=== PATIENT | female | born 1955 | race Caucasian/White ===

== ENCOUNTER 2020-01-24 15:13 | Outpatient (CLI) | payer MEDICARE, SELFPAY ==
--- NOTE | ~2020-01-24 | XR_ITS ---
XR chest 2V DATE: 01/24/2020 15:38 INDICATION: Cough, fever, shortness of breath for 4 days TECHNIQUE: PA and lateral views COMPARISON: 02/26/2010 2 view chest FINDINGS: Normal heart size. No hilar or mediastinal enlargement. No pulmonary infiltrate or consol idation, pulmonary vascular congestion or pleural effusion or pneumothorax. Moderate anterior wedge compression fracture deformity of L1 and to lesser extent T7 and L2. IMPRESSION: No active cardiopulmonary disease Moderate anterior wedge compression fracture deformity of L1 and to lesser extent T7 and L2. Reviewed, dictated and finalized at location B. IMPRESSION: No active cardiopulmonary disease Moderate anterior wedge compression fracture deformity of L1 and to lesser exte nt T7 and L2.
[2020-01-24 15:30] LABS: Basophils Absolute Auto 0.04 K/mm3 (0.00-0.10); Basophils Percent Auto 0.6 % (0.0-1.0); Eosinophils Absolute Auto 0.28 K/mm3 (0.02-0.50); Eosinophils Percent Auto 4.5 % (1.0-6.0); Hematocrit 46.2 % (35.0-42.0); Hemoglobin 14.8 g/dL (11.7-13.8); Immature Granulocyte Absolute 0.03 K/mm3 (0.00-0.00); Immature Granulocyte Percent A 0.5 % (0.0-0.0); Lymphocytes Absolute Auto 1.51 K/mm3 (1.10-4.50); Lymphocytes Percent Auto 24.3 % (18.0-42.0); Mean Corpuscular Hemoglobin 28.4 pg (27.0-31.0); Mean Corpuscular Volume 88.5 fL (78.0-102.0); Monocytes Absolute Auto 0.93 K/mm3 (0.10-0.90); Neutrophils Absolute Auto 3.4 K/mm3 (1.7-7.2); Neutrophils Percent Auto 55.1 % (50.0-70.0); Platelet Count Result 238 K/mm3 (150-420); Red Blood Count 5.22 M/mm3 (4.20-5.40); Red Cell Distribution Width 14.8 % (11.6-14.4); White Blood Count 6.2 K/mm3 (4.8-10.8)
[2020-01-24 15:45] LABS: Alanine Aminotransferase 28 U/L (14-59); Albumin Level 3.1 g/dL (3.4-5.0); Alkaline Phosphatase 77 U/L (46-116); Anion Gap 11.5 mmol/L (7-16); Aspartate Amino Transferase 28 U/L (15-37); Bilirubin,Total 0.2 mg/dL (0.00-1.00); Blood Urea Nitrogen 14 mg/dL (7-18); Calcium 8.5 mg/dL (8.5-10.1); Carbon Dioxide 31 mmol/L (21-32); Chloride 101 mmol/L (98-108); Estimated Glomerular Filt Rate > 60; Glucose 109 mg/dL (70-99); Osmolality Calculated 289 mOsm/kg (285-295); Potassium 4.5 mmol/L (3.5-5.1); Sodium 139 mmol/L (136-145); Total Protein 6.7 g/dL (6.4-8.2)
== END 2020-01-24 15:14 | disposition home or self-care (01) ==
LOC: CHSLAB 15:19
PROVIDERS: PCP Internal Medicine; Visit Provider Internal Medicine
DX: R05 Cough (principal); R50.9 Fever, unspecified
CPT/HCPCS: 36415; 71046; 80053; 85025

== ENCOUNTER 2020-04-15 09:27 | Outpatient (CLI) | payer MEDICARE, SELFPAY ==
--- NOTE | ~2020-04-15 | XR_ITS ---
XR lumbar spine 2-3V 04/15/2020 10:30 Indication: History of spinal fractures. Back pain. Procedure: 3 views lumbar spine Comparison: 05/23/2019 Findings: There is chronic wedge compression fracture of T12. There are mild superior endplate compre ssion fractures of L1 and L5, unchanged. Moderate multilevel facet hypertrophy. There is atherosclero sis of the aorta. Pedicles intact. No new fractures. There is disc narrowing at all lumbar levels exc ept L3-4. Impression: 1: Chronic compression fractures of T12, L1 and L5, unchanged. 2: Moderate-severe lumbar spondylosis. Reviewed, dictated and finalized at location A. Impression: 1: Chronic compression fractures of T12, L1 and L5, unchanged. 2: Moderate-severe lumbar spondylosis.
--- NOTE | ~2020-04-15 | XR_ITS ---
XR thoracic spine 3V 04/15/2020 10:30 Indication: Chronic spine fractures. Back pain. Procedure: 3 views of the thoracic spine Comparison: 06/17/2014 Findings: There is a chronic T12 wedge compression fracture without significant change. Osteopenia. T here is a mild wedge compression deformity of T6 which also appears chronic. No acute fracture. No pa raspinal soft tissue abnormality. Surrounding osseous structures within normal limits. Impression: 1: Chronic wedge compression fractures of T6 and T12 without significant change. Reviewed, dictated and finalized at location A. Impression: 1: Chronic wedge compression fractures of T6 and T12 without significant change .
== END 2020-04-15 09:28 | disposition home or self-care (01) ==
PROVIDERS: PCP Internal Medicine; Visit Provider Internal Medicine
DX: M54.9 Dorsalgia, unspecified (principal)
CPT/HCPCS: 72072; 72100

== ENCOUNTER 2020-04-22 11:02 | Outpatient (CLI) | payer MEDICARE, SELFPAY ==
--- NOTE | ~2020-04-22 | CT_ITS ---
EXAMINATION: CT abdomen pelvis w con DATE: 04/22/2020 11:37 INDICATION: Generalized abdominal pain. TECHNIQUE: Computed tomography (CT) of the abdomen and pelvis was performed with 100 mL Omnipaque 350 intravenous contrast. Automated exposure control and iterative reconstruction technique were employe d. The dose-length product was 633.16 mGy-cm. COMPARISON: Thoracic spine CT 06/20/2014, lumbar spine radiographs 04/15/2020, 05/23/2019, chest two view s 01/24/20 FINDINGS: The visualized portions of the lung bases demonstrate mild atelectasis. No pleural effusion . The heart size is normal. No pericardial effusion. There are cysts in the liver measuring up to 7.6 cm. The gallbladder, spleen, and pancreas are normal. There are masses in the adrenal glands measuri ng soft tissue attenuation measuring up to 2.6 cm on the left without change from 06/20/2014, consiste nt with adenomas. Right kidney is normal. There are cysts in left kidney measuring up to 7.2 cm. Ther e is diverticulosis of the colon without evidence of diverticulitis. There are no dilated loops of gio wel. The appendix is not visualized. There are no pathologically enlarged lymph nodes. There is no fr ee intraperitoneal fluid. There is moderate lumbar spondylosis. There are chronic burst fractures of T12, L1, and L5. There is a burst fracture of L2 with 1/5 loss of height and retropulsion of bone 3 m m into central spinal canal. IMPRESSION: 1. L2 burst fracture, new from 01/24/2020. Reviewed, dictated and finalized at location A.
== END 2020-04-22 11:03 | disposition home or self-care (01) ==
LOC: CHSIMG 11:05
PROVIDERS: PCP Internal Medicine; Visit Provider Internal Medicine
DX: R10.9 Unspecified abdominal pain (principal)
CPT/HCPCS: 74177; Q9965

== ENCOUNTER 2020-05-15 15:02 | Outpatient (CLI) | payer MEDICARE, SELFPAY ==
--- NOTE | ~2020-05-15 | MM_ITS ---
EXAMINATION: MM screening [facility] BI w martínez HISTORY: Screening mammogram TECHNIQUE: Craniocaudal and mediolateral oblique 3-D tomosynthesis images were obtained and synthetic 2-D images were generated. CAD analysis was submitted and interpreted. COMPARISON: 12/28/2018, 06/26/2014 BREAST PARENCHYMAL COMPOSITION: The breasts are heterogeneously dense, which may obscure small masses . FINDINGS: There is no evidence of suspicious mass, calcification, or architectural distortion to sugg est malignancy in either breast. There has been no suspicious interval change. IMPRESSION: 1. No mammographic evidence of malignancy. 2. Recommend routine screening mammography in one year. BI-RADS Category 1: Negative Reviewed, dictated and finalized at location A.
--- NOTE | ~2020-05-15 | DEXA_ITS ---
BMD(1) Young-Adult(2) Age-Matched(3) Region (g/cm2) T-score Z-score WHO Classification L1 1.244 0.8 1.9 Normal L2 1.346 1.1 2.2 Normal L3 1.407 1.5 2.6 Normal L4 1.294 0.6 1.6 Normal L1-L4 1.331 1.1 2.1 Normal Trend: L1-L4 Change vs Change vs Measured Age BMD(1) Baseline Previous Date (years) (g/cm2) (%) (%) 05/15/2020 65.0 1.331 10.0* 10.0* 06/26/2014 59.1 1.210 baseline - * - Indicates significant change based on 95% confidence interval. 1 - Statistically 68% of repeat scans fall within 1SD (+- 0.010 g/cm2 for AP Spine L1-L4) 2 - [place] (Combined NHANES (ages 20-30) / HomeSav (ages 20-40)) AP Spine Reference Population (v112) 3 - Matched for Age, Weight (females 25-100 kg), Ethnic 11 - World Health Organization - Definition of Osteoporosis and Osteopenia for Women: Normal = T-score at or above -1.0 SD; Osteopenia = T-score between -1.0 and -2.5 SD; Osteoporosis = T-score at or below -2.5 SD; (WHO definitions only apply when a young healthy Women reference database is used to determine T-scores.) Printed: 05/15/2020 3:42:56 PM (13.60)76:3.00:50.00:12.0 0.00:9.84 0.60x1.05 25.1:%Fat=29.1% 0.00:0.00 0.00:0.00 Filename: [id number] Scan Mode: Standard;[employer]can 37.0 Smile [id number] BMD(1) Young-Adult(2,7) Age-Matched(3) Region (g/cm2) T-score Z-score WHO Classification Neck Left 0.765 -2.0 -0.8 Osteopenia Right 0.809 -1.6 -0.5 Osteopenia Mean 0.787 -1.8 -0.7 Osteopenia Difference 0.044 0.3 0.3 - Total Left 0.832 -1.4 -0.5 Osteopenia Right 0.862 -1.2 -0.3 Osteopenia Mean 0.847 -1.3 -0.4 Osteopenia Difference 0.030 0.2 0.2 - Hip [place] Length Comparison (mm) (Right = 94.5 mm) (Mean = 107.9 mm) (Left = 107.0 mm) Trend: Total Mean Change vs Change vs Measured Age BMD(1) Baseline Previous Date (years) (g/cm2) (%) (%) 05/15/2020 65.0 0.847 -2.3 -2.3 06/26/2014 59.1 0.867 baseline - 1 - Statistically 68% of repeat scans fall within 1SD (+- 0.010 g/cm2 for DualFemur Total) 2 - [place] (Combined NHANES (ages 20-30) / HomeSav (ages 20-40)) Femur Reference Population (v112) 3 - Matched for Age, Weight (females 25-100 kg), Ethnic 7 - DualFemur Total T-score difference is 0.2. Asymmetry is None. 11 - World Health Organization - Definition of Osteoporosis and Osteopenia for Women: Normal = T-score at or above -1.0 SD; Osteopenia = T-score between -1.0 and -2.5 SD; Osteoporosis = T-score at or below -2.5 SD; (WHO definitions only apply when a young healthy Women reference database is used to determine T-scores.) Printed: 05/15/2020 3:42:57 PM (13.60); Filename: [id number]; Right Femur; 20.8:%Fat=36.5%; Neck Angle (deg)= 64; Scan Mode: Standard 37.0 uGy; Left Femur; 20.7:%Fat=41.0%; Neck Angle (deg)= 70; Scan Mode: Standard 37.0 uGy Candid io [id number] Dear Luis Levi, Your patient Madeline Villa completed a BMD test on 05/15/2020 using the Candid io DXA System (analysis version: 13.60) manufactured by [employer]. The following summarizes the results of our evaluation. PATIENT BIOGRAPHICAL: Name: Madeline Villa Bi
== END 2020-05-15 15:03 | disposition home or self-care (01) ==
PROVIDERS: PCP Internal Medicine; Visit Provider Internal Medicine
DX: Z12.31 Encounter for screening mammogram for malignant neoplasm of breast (principal); M81.0 Age-related osteoporosis without current pathological fracture
CPT/HCPCS: 77063; 77067; 77080

== ENCOUNTER 2021-06-23 11:35 | Outpatient (CLI) | payer MEDICARE, SELFPAY ==
[2021-06-23 11:48] LABS: Add Urine Microscopic? YES; Appearance Urine Clear (Clear); Bilirubin Urine Negative (Negative); Blood Urine 1+ (Negative); Color Urine Light Yellow (Yellow); Glucose Urine UA Negative (Negative); Ketones Urine Negative (Negative); Leukocyte Esterase Ur Negative (Negative); Nitrate Urine Negative (Negative); Protein Urine Negative (Negative); Specific Grav Ur <= 1.005 (1.010-1.020); Urobilinogen Urine 0.2 mg/dL (0.2-1.0)
[2021-06-23 11:50] LABS: Basophils Absolute Auto 0.09 K/mm3 (0.00-0.10); Basophils Percent Auto 0.8 % (0.0-1.0); Eosinophils Absolute Auto 0.18 K/mm3 (0.02-0.50); Eosinophils Percent Auto 1.6 % (1.0-6.0); Hematocrit 52.5 % (35.0-42.0); Hemoglobin 17.2 g/dL (11.7-13.8); Immature Granulocyte Absolute 0.11 K/mm3 (0.00-0.00); Lymphocytes Absolute Auto 2.01 K/mm3 (1.10-4.50); Lymphocytes Percent Auto 17.7 % (18.0-42.0); Mean Corpuscular HGB Conc 32.8 g/dL (32.0-36.0); Mean Corpuscular Hemoglobin 30.3 pg (27.0-31.0); Mean Corpuscular Volume 92.4 fL (78.0-102.0); Mean Platelet Volume 8.8 fl (9.2-11.8); Monocytes Percent Auto 7.9 % (2.0-11.0); Neutrophils Absolute Auto 8.1 K/mm3 (1.7-7.2); Platelet Count Result 274 K/mm3 (150-420); Red Blood Count 5.68 M/mm3 (4.20-5.40); Red Cell Distribution Width 14.5 % (11.6-14.4); White Blood Count 11.4 K/mm3 (4.8-10.8)
[2021-06-23 11:56] LABS: Bacteria Urine None seen /hpf; RBC Urine 0-2 /hpf (0-2); Squamous Epithelial Cell Urine Rare /hpf (Few); WBC Urine 0-3 /hpf (0-3)
[2021-06-23 12:17] LABS: Alanine Aminotransferase 29 U/L (14-59); Albumin Level 3.8 g/dL (3.4-5.0); Alkaline Phosphatase 83 U/L (46-116); Anion Gap 10 mmol/L (8-16); Aspartate Amino Transferase 15 U/L (15-37); Bilirubin,Total 0.8 mg/dL (0.00-1.00); Blood Urea Nitrogen 14 mg/dL (7-18); Carbon Dioxide 28 mmol/L (21-32); Chloride 102 mmol/L (98-108); Cholesterol 174 mg/dL (0-200); Estimated Glomerular Filt Rate 55; Glucose 100 mg/dL (70-99); HDL Direct 67 mg/dL (40-60); LDL Cholesterol Calculated 94 mg/dL (<130); Osmolality Calculated 290 mOsm/kg (285-295); Potassium 4.6 mmol/L (3.5-5.1); Sodium 140 mmol/L (136-145); Thyroid Stimulating Hormone 0.06 uIU/mL (0.36-3.74); Total Protein 7.7 g/dL (6.4-8.2); Triglycerides 67 mg/dL (0-150)
== END 2021-06-23 11:36 | disposition home or self-care (01) ==
LOC: CHSLAB 11:39
PROVIDERS: PCP Internal Medicine; Visit Provider Internal Medicine
DX: E03.9 Hypothyroidism, unspecified (principal); I10 Essential (primary) hypertension
CPT/HCPCS: 36415; 80053; 80061; 81001; 84443; 85025

== ENCOUNTER 2021-07-03 07:29 | Outpatient (CLI) | payer MEDICARE, SELFPAY ==
--- NOTE | ~2021-07-03 | MM_ITS ---
EXAMINATION: MM screening [facility] BI w martínez HISTORY: Screening mammogram TECHNIQUE: Craniocaudal and mediolateral oblique 3-D tomosynthesis images were obtained and synthetic 2-D images were generated. CAD analysis was submitted and interpreted. COMPARISON: 05/15/2020, 12/28/2018, 06/26/2014 BREAST PARENCHYMAL COMPOSITION: There are scattered areas of fibroglandular density. FINDINGS: There is no evidence of suspicious mass, calcification, or architectural distortion to sugg est malignancy in either breast. There has been no suspicious interval change. IMPRESSION: 1. No mammographic evidence of malignancy. 2. Recommend routine screening mammography in one year. BI-RADS Category 1: Negative Reviewed, dictated and finalized at location A.
== END 2021-07-03 07:30 | disposition home or self-care (01) ==
LOC: CHSIMG 07:30
PROVIDERS: PCP Internal Medicine; Visit Provider Internal Medicine
DX: Z12.31 Encounter for screening mammogram for malignant neoplasm of breast (principal)
CPT/HCPCS: 77063; 77067

== ENCOUNTER 2022-01-14 10:21 | Outpatient (CLI) | payer MEDICARE, SELFPAY ==
--- NOTE | ~2022-01-14 | XR_ITS ---
EXAMINATION: XR shoulder LT min 2V DATE: 01/14/2022 10:53 INDICATION: Left shoulder pain. TECHNIQUE: 4 views of left shoulder were obtained. COMPARISON: Left shoulder radiographs 01/13/2009 FINDINGS: Bone alignment is normal. No fracture. There is mild osteoarthritis of acromioclavicular guanakito int and glenohumeral joint. There are surgical clips in the neck. IMPRESSION: 1. Mild polyarticular osteoarthritis. Reviewed, dictated and finalized at location A. CIAN
== END 2022-01-14 10:22 | disposition home or self-care (01) ==
LOC: CHSIMG 10:23
PROVIDERS: PCP Internal Medicine; Visit Provider Internal Medicine
DX: M25.512 Pain in left shoulder (principal)
CPT/HCPCS: 73030

== ENCOUNTER 2022-06-21 10:17 | Outpatient (CLI) | payer MEDICARE, SELFPAY ==
[2022-06-21 10:31] LABS: Basophils Absolute Auto 0.08 K/mm3 (0.00-0.10); Basophils Percent Auto 0.7 % (0.0-1.0); Eosinophils Absolute Auto 0.13 K/mm3 (0.02-0.50); Eosinophils Percent Auto 1.2 % (1.0-6.0); Hematocrit 49.8 % (35.0-42.0); Immature Granulocyte Absolute 0.07 K/mm3 (0.00-0.00); Immature Granulocyte Percent A 0.7 % (0.0-0.0); Lymphocytes Absolute Auto 1.75 K/mm3 (1.10-4.50); Lymphocytes Percent Auto 16.3 % (18.0-42.0); Mean Corpuscular HGB Conc 32.1 g/dL (32.0-36.0); Mean Corpuscular Hemoglobin 30.6 pg (27.0-31.0); Mean Corpuscular Volume 95.2 fL (78.0-102.0); Mean Platelet Volume 9.1 fl (9.2-11.8); Monocytes Absolute Auto 0.83 K/mm3 (0.10-0.90); Monocytes Percent Auto 7.7 % (2.0-11.0); Neutrophils Absolute Auto 7.9 K/mm3 (1.7-7.2); Neutrophils Percent Auto 73.4 % (50.0-70.0); Platelet Count Result 279 K/mm3 (150-420); Red Blood Count 5.23 M/mm3 (4.20-5.40); Red Cell Distribution Width 13.7 % (11.6-14.4); White Blood Count 10.7 K/mm3 (4.8-10.8)
[2022-06-21 10:32] LABS: Appearance Urine Clear (Clear); Bilirubin Urine Negative (Negative); Color Urine Light Yellow (Yellow); Glucose Urine UA Negative (Negative); Ketones Urine Negative (Negative); Leukocyte Esterase Ur Negative LEU/UL (Negative); Nitrate Urine Negative (Negative); Protein Urine Negative (Negative); Specific Grav Ur <= 1.005 (1.010-1.020); Urobilinogen Urine 0.2 mg/dL (0.2-1.0)
[2022-06-21 10:40] LABS: Add Urine Microscopic? YES; Bacteria Urine Trace /hpf; Blood Urine Trace-Intact (Negative); RBC Urine 0-2 /hpf (0-2); Squamous Epithelial Cell Urine Few /hpf (Few); WBC Urine None seen /hpf (0-3)
[2022-06-21 11:01] LABS: Alanine Aminotransferase 22 U/L (14-59); Albumin Level 3.6 g/dL (3.4-5.0); Alkaline Phosphatase 74 U/L (46-116); Anion Gap 5 mmol/L (8-16); Aspartate Amino Transferase 16 U/L (15-37); Bilirubin,Total 0.8 mg/dL (0.00-1.00); Blood Urea Nitrogen 14 mg/dL (7-18); Calcium 8.9 mg/dL (8.5-10.1); Carbon Dioxide 30 mmol/L (21-32); Chloride 101 mmol/L (98-108); Cholesterol 159 mg/dL (0-200); Estimated Glomerular Filt Rate > 60; Glucose 115 mg/dL (70-99); HDL Direct 66 mg/dL (40-60); LDL Cholesterol Calculated 76 mg/dL (<130); Osmolality Calculated 283 mOsm/kg (285-295); Potassium 4.7 mmol/L (3.5-5.1); Sodium 136 mmol/L (136-145); Thyroid Stimulating Hormone 0.03 uIU/mL (0.36-3.74); Total Protein 7.2 g/dL (6.4-8.2); Triglycerides 83 mg/dL (0-150)
[2022-06-21 13:38] LABS: Hemoglobin A1C 5.5 % (<5.7)
== END 2022-06-21 10:18 | disposition home or self-care (01) ==
LOC: CHSLAB 10:20
PROVIDERS: PCP Internal Medicine; Visit Provider Internal Medicine
DX: E78.5 Hyperlipidemia, unspecified (principal); E03.9 Hypothyroidism, unspecified; I10 Essential (primary) hypertension; Z00.00 Encounter for general adult medical examination without abnormal findings; R73.9 Hyperglycemia, unspecified
CPT/HCPCS: 36415; 80053; 80061; 81001; 83036; 84443; 85025

== ENCOUNTER 2022-09-17 13:45 | Outpatient (CLI) | payer MEDICARE, SELFPAY ==
[2022-09-17 14:45] LABS: Thyroid Stimulating Hormone 0.64 uIU/mL (0.36-3.74)
== END 2022-09-17 13:46 | disposition home or self-care (01) ==
LOC: CHSLAB 13:47
PROVIDERS: PCP Internal Medicine; Visit Provider Internal Medicine
DX: E03.9 Hypothyroidism, unspecified (principal)
CPT/HCPCS: 36415; 84443

== ENCOUNTER 2023-03-10 09:45 | Outpatient (CLI) | payer MEDICARE, SELFPAY ==
--- NOTE | ~2023-03-10 | XR_ITS ---
Lumbosacral Spine: AP and lateral views Clinical History: Pain COMPARISON: 04/15/2020 Findings: The normal lordotic curve is maintained. Mild compression fractures of L2 and L3, at the guevara perior plate regions, are present, new from prior exam. There is stable moderate compression fracture of T12, and mild compression fracture of L1. There is diffuse facet arthropathy in the lumbar spine, worst at the lower lumbar spine. The intervertebral disc spaces are preserved. The sacroiliac joint s are normally outlined. Atherosclerotic calcifications of the aorta are noted. Impression: New compression fractures of L2 and L3 since prior exam. L3 fracture may be acute. Consider MR to owen luate for acute marrow edema as indicated. Stable chronic compression fractures of T12 and L1. Stable degenerative spondylosis. Reviewed, dictated and finalized at [facility]. Impression: New compression fractures of L2 and L3 since prior exam. L3 fracture may be acu te. Consider MR to evaluate for acute marrow edema as indicated. Stable chronic compression fractures of T12 and L1. Stable degenerative spondylosis.
--- NOTE | ~2023-03-10 | XR_ITS ---
AP and lateral views of the right hip Clinical history: Pain Findings: No acute fracture or dislocation is seen. Osseous alignment is anatomic. The right hip join t is preserved. Soft tissues are unremarkable. Impression: No significant abnormality is seen. Reviewed, dictated and finalized at location . Impression: No significant abnormality is seen.
[2023-03-10 10:00] LABS: Basophils Absolute Auto 0.09 K/mm3 (0.00-0.10); Basophils Percent Auto 0.7 % (0.0-1.0); Eosinophils Absolute Auto 0.16 K/mm3 (0.02-0.50); Eosinophils Percent Auto 1.3 % (1.0-6.0); Hemoglobin 16.3 g/dL (11.7-13.8); Immature Granulocyte Absolute 0.14 K/mm3 (0.00-0.00); Immature Granulocyte Percent A 1.1 % (0.0-0.0); Lymphocytes Absolute Auto 2.39 K/mm3 (1.10-4.50); Lymphocytes Percent Auto 18.7 % (18.0-42.0); Mean Corpuscular HGB Conc 32.6 g/dL (32.0-36.0); Mean Corpuscular Hemoglobin 31.1 pg (27.0-31.0); Mean Corpuscular Volume 95.4 fL (78.0-102.0); Mean Platelet Volume 8.6 fl (9.2-11.8); Neutrophils Absolute Auto 9.1 K/mm3 (1.7-7.2); Neutrophils Percent Auto 71.2 % (50.0-70.0); Platelet Count Result 288 K/mm3 (150-420); Red Blood Count 5.24 M/mm3 (4.20-5.40); Red Cell Distribution Width 14.1 % (11.6-14.4); White Blood Count 12.8 K/mm3 (4.8-10.8)
[2023-03-10 10:41] LABS: Alanine Aminotransferase 9 U/L (14-59); Albumin Level 3.7 g/dL (3.4-5.0); Alkaline Phosphatase 75 U/L (46-116); Anion Gap 8 mmol/L (8-16); Aspartate Amino Transferase 12 U/L (15-37); Blood Urea Nitrogen 13 mg/dL (7-18); CRP < 0.5 mg/dL (0.0-0.9); Calcium 9.3 mg/dL (8.5-10.1); Carbon Dioxide 31 mmol/L (21-32); Chloride 100 mmol/L (98-108); Estimated Glomerular Filt Rate 54; Glucose 103 mg/dL (70-99); Osmolality Calculated 288 mOsm/kg (285-295); Potassium 4.8 mmol/L (3.5-5.1); Sodium 139 mmol/L (136-145); Thyroid Stimulating Hormone 0.39 uIU/mL (0.36-3.74); Total Protein 6.9 g/dL (6.4-8.2)
== END 2023-03-10 09:46 | disposition home or self-care (01) ==
LOC: CHSLAB 09:46
PROVIDERS: PCP Internal Medicine; Visit Provider Internal Medicine
DX: M54.17 Radiculopathy, lumbosacral region (principal); I10 Essential (primary) hypertension; E03.9 Hypothyroidism, unspecified; M48.56XA Collapsed vertebra, not elsewhere classified, lumbar region, initial encounter for fracture; M48.54XA Collapsed vertebra, not elsewhere classified, thoracic region, initial encounter for fracture; M43.07 Spondylolysis, lumbosacral region
CPT/HCPCS: 36415; 72100; 73502; 80053; 84443; 85025; 86140

== ENCOUNTER 2023-03-17 08:40 | Outpatient (CLI) | payer MEDICARE, SELFPAY ==
--- NOTE | ~2023-03-17 | MR_ITS ---
MRI of the lumbar spine Clinical History: Compression fracture Technique: Axial T2-weighted images, and sagittal T1-weighted, T2-weighted, and T2 fat-sat images wer e acquired. Findings: There is chronic compression deformity of T12, L1, and L5. There is probable acute minimal compression deformity of the superior plate region of L2. There is minimal grade 1 retrolisthesis of L2 over L3. At L1-L2, there is mild diffuse disc bulge and mild facet arthropathy. No spinal canal stenosis. Ther e is mild right neural foraminal narrowing. Left neural foramen preserved. At L2-L3, there is disc bulge and mild to moderate facet arthropathy. No central canal stenosis. Ther e is advanced left neural foraminal narrowing and minimal right neural foraminal narrowing. L3-L4, disc bulge and facet arthropathy result in mild central canal stenosis. Bilateral neural yanira antionette are preserved. At L4-L5, there is mild disc bulge and moderate facet arthropathy. No central canal stenosis. Bilater al neural foramina are preserved. At L5-S1, there is no disc bulge or herniation. There is moderate to advanced facet arthropathy. No s jelly canal stenosis or neural foraminal narrowing. Paravertebral soft tissues are unremarkable. Hepatic and renal cysts are partially imaged. Impression: Probable minimal acute compression fracture of the superior endplate region of L2. Chronic compression fractures of T12, L1, and L5. Minimal grade 1 retrolisthesis of L2 over L3. Mild degenerative spondylosis, as above. Findings are probably worst at L2-L3. Reviewed, dictated and finalized at [facility]. Impression: Probable minimal acute compression fracture of the superior endplate region of L2. Chronic compression fractures of T12, L1, and L5. Minimal grade 1 retrolisthesis of L2 over L3. Mild degenerative spondylosis, as above. Findings are probably worst at L2-L3.
== END 2023-03-17 08:41 | disposition home or self-care (01) ==
LOC: CHSIMG 08:41
PROVIDERS: PCP Internal Medicine; Visit Provider Internal Medicine
DX: M48.56XA Collapsed vertebra, not elsewhere classified, lumbar region, initial encounter for fracture (principal); M43.06 Spondylolysis, lumbar region
CPT/HCPCS: 72148

== ENCOUNTER 2023-07-04 08:07 | Outpatient (CLI) | payer MEDICARE, SELFPAY ==
[2023-07-04 09:11] LABS: Free T3 1.88 pg/mL (2.18-3.98); Free T4 Free Thyroxine 1.21 ng/dL (0.76-1.46); Thyroid Stimulating Hormone 0.87 uIU/mL (0.36-3.74)
[2023-07-08 18:32] LABS: Parathyroid Intact 26 pg/mL (14-64)
== END 2023-07-04 08:08 | disposition home or self-care (01) ==
LOC: CHSLAB 08:10
PROVIDERS: PCP Internal Medicine; Visit Provider Internal Medicine
DX: E03.9 Hypothyroidism, unspecified (principal)
CPT/HCPCS: 36415; 83970; 84439; 84443; 84481

== ENCOUNTER 2023-12-30 12:33 | Outpatient (CLI) | payer MEDICARE, SELFPAY ==
[2023-12-30 12:49] LABS: Basophils Absolute Auto 0.11 K/mm3 (0.00-0.10); Eosinophils Absolute Auto 0.15 K/mm3 (0.02-0.50); Eosinophils Percent Auto 1.3 % (1.0-6.0); Hematocrit 51.6 % (35.0-42.0); Hemoglobin 16.9 g/dL (11.7-13.8); Immature Granulocyte Absolute 0.14 K/mm3 (0.00-0.00); Immature Granulocyte Percent A 1.2 % (0.0-0.0); Lymphocytes Absolute Auto 2.43 K/mm3 (1.10-4.50); Lymphocytes Percent Auto 21.1 % (18.0-42.0); Mean Corpuscular HGB Conc 32.8 g/dL (32.0-36.0); Mean Corpuscular Volume 91.7 fL (78.0-102.0); Mean Platelet Volume 8.8 fl (9.2-11.8); Monocytes Absolute Auto 1.01 K/mm3 (0.10-0.90); Monocytes Percent Auto 8.8 % (2.0-11.0); Neutrophils Absolute Auto 7.7 K/mm3 (1.7-7.2); Neutrophils Percent Auto 66.6 % (50.0-70.0); Platelet Count Result 283 K/mm3 (150-420); Red Blood Count 5.63 M/mm3 (4.20-5.40); Red Cell Distribution Width 14.1 % (11.6-14.4); White Blood Count 11.5 K/mm3 (4.8-10.8)
[2023-12-30 12:59] LABS: Appearance Urine Clear (Clear); Bilirubin Urine Negative (Negative); Blood Urine 2+ (Negative); Color Urine Light Yellow (Yellow); Glucose Urine UA Negative (Negative); Ketones Urine Trace (Negative); Leukocyte Esterase Ur Negative (Negative); Nitrate Urine Negative (Negative); Protein Urine Negative (Negative); Urobilinogen Urine 0.2 mg/dL (0.2-1.0); pH Urine 5.5 (5.0-8.0)
[2023-12-30 13:08] LABS: Add Urine Microscopic? YES; Bacteria Urine 1+ /hpf; Squamous Epithelial Cell Urine Few /hpf (Few); WBC Urine None seen /hpf (0-3)
[2023-12-30 15:29] LABS: Alanine Aminotransferase 28 U/L (14-59); Albumin Level 3.7 g/dL (3.4-5.0); Alkaline Phosphatase 70 U/L (46-116); Anion Gap 9 mmol/L (8-16); Aspartate Amino Transferase 13 U/L (15-37); Bilirubin,Total 0.6 mg/dL (0.00-1.00); Blood Urea Nitrogen 14 mg/dL (7-18); Calcium 9.3 mg/dL (8.5-10.1); Carbon Dioxide 29 mmol/L (21-32); Chloride 102 mmol/L (98-108); Cholesterol 195 mg/dL (0-200); Estimated Glomerular Filt Rate > 60; Glucose 75 mg/dL (70-99); HDL Direct 69 mg/dL (40-60); LDL Cholesterol Calculated 107 mg/dL (<130); Osmolality Calculated 289 mOsm/kg (285-295); Potassium 5.3 mmol/L (3.5-5.1); Sodium 140 mmol/L (136-145); Thyroid Stimulating Hormone 0.19 uIU/mL (0.36-3.74); Total Protein 6.9 g/dL (6.4-8.2); Triglycerides 93 mg/dL (0-150)
== END 2023-12-30 12:34 | disposition home or self-care (01) ==
LOC: CHSLAB 12:35
PROVIDERS: PCP Internal Medicine; Visit Provider Internal Medicine
DX: I10 Essential (primary) hypertension (principal)
CPT/HCPCS: 36415; 80053; 80061; 81001; 84443; 85025

== ENCOUNTER 2025-03-25 10:21 | Outpatient (CLI) | payer MEDICARE, SELFPAY ==
[2025-03-25 10:36] LABS: Hematocrit 53.7 % (35.0-42.0); Hemoglobin 17.3 g/dL (11.7-13.8); Mean Corpuscular HGB Conc 32.2 g/dL (32-36); Mean Corpuscular Hemoglobin 29.5 pg (27.0-31.0); Mean Corpuscular Volume 91.5 fL (78.0-102.0); Mean Platelet Volume 8.8 fl (9.2-11.8); Platelet Count Result 291 K/mm3 (150-420); Red Blood Count 5.87 M/mm3 (4.20-5.40); White Blood Count 14.3 K/mm3 (4.8-10.8)
[2025-03-25 10:37] LABS: Add Urine Microscopic? NO; Appearance Urine Clear (Clear); Bilirubin Urine Negative (Negative); Blood Urine Trace-intact (Negative); Color Urine Light Yellow (Yellow); Glucose Urine UA Negative (Negative); Ketones Urine Negative (Negative); Leukocyte Esterase Ur Negative (Negative); Nitrate Urine Negative (Negative); Protein Urine Negative (Negative); Specific Grav Ur <= 1.005 (1.010-1.020); Urobilinogen Urine 0.2 mg/dL (0.2-1.0)
--- OUTSIDE RECORDS SUMMARY | 2025-03-25 10:59 | XMS_ITS ---
Author Organization [facility] [place] [facility] Address [address] [place] [address] Care Team Providers Care Advertising Associate Name Role Phone Luis Levi MD Primary Care Provider [phone] Active Problems Problem Noted Date Diagnosed Date Sesamoiditis of right hand 10/10/2024 Trigger finger, right index finger 10/10/2024 Trigger middle finger of right hand 09/24/2024 Post-surgical hypothyroidism 11/14/2023 Assessment & Plan (11/14/2023 7:04 PM FURNITURE LUMBER PRODUCTION WORKER): -repeat TSH, FT4 today -continue current dose of levothyroxine, will adjust dose based on her labs -goal TSH should be within normal range since she has been in remission for >10 years. Also with her hx of osteoporosis and vertebral fractures, would not recommend suppressed TSH History of vertebral compression fracture 2022 Recurrent maxillary sinusitis 10/28/2022 Assessment & Plan (10/28/2022 8:40 AM FURNITURE LUMBER PRODUCTION WORKER): CT Sinus - have face covering completely of face for imaging Centralized Scheduling: Nasal saline spray (Simply saline, Little Remedies, Cherry Log, Jemison) 2 second sprays or 2 squeezes into each nostril while looking down over the sink, do not need to sniff in. 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 No surgical treatment indicated at this time. Assessment & Plan (12/25/2018 8:05 AM FURNITURE LUMBER PRODUCTION WORKER): Patient demonstrates signs and symptoms consistent with chronic sinusitis. Patient has a known history of allergic rhinitis. Patient is also habitual tobacco user. There has been no recent diagnostic imaging. Today's examination did reveal a deviation of the septum to the right with turbinate hypertrophy. Patient would benefit from a CT scan of the paranasal sinuses to evaluate the extent of the disease. Patient will follow back up afterwards to discuss the results and any further treatment recommendations. Allergic rhinitis 12/25/2018 Assessment & Plan (04/03/2020 2:18 PM CDT): Nasal saline spray (Simply saline, Little Remedies, Cherry Log, Jemison) 2 second sprays or 2 squeezes into each nostril while looking down over the sink, do not need to sniff in. Followed by Astelin 2 sprays into each nostril while looking down over the sink, do not sniff in or blow nose after use for at least 30 minutes twice daily Start Cetirizine 10 mg (Zyrtec) daily Blood allergy testing Assessment & Plan (01/08/2019 12:42 PM FURNITURE LUMBER PRODUCTION WORKER): Patient will be placed on fluticasone nasal spray two sprays in each nostril q.day and Astelin nasal spray one spray in each nostril q.day. Patient instructed to maintain compliance with her treatment regimen. She has also consist a on the Singulair as prescribed daily. Patient would benefit from daily saline nasal irrigation of promote mucociliary clearance. Patient was made aware that her habitual cigarette smoking has a large contribution to her chronic sinonasal symptoms. Anything she can do to reduce her discontinue cigarette smoking will directly benefit. Assessment & Plan (12/25/2018 8:13 AM FURNITURE LUMBER PRODUCTION WORKER): Patient reports that she has been tested positive for allergies in the past. She did receive immunotherapy. Patient is also habitual cigarette smoker. She has been taking Singulair and Claritin p.r.n.. Patient was given a saline nasal irrigation system to be performed daily to help promote mucociliary clearance. Patient is advised to continue with the Singulair and Claritin as prescribed until workup is complete. Tobacco abuse disorder 12/25/2018 Assessment & Plan (12/25/2018 8:08 AM FURNITURE LUMBER PRODUCTION WORKER): Patient was advised that habitual tobacco use with smoking cigarettes directly contributes to her chronic sinonasal symptoms. By stopping smoking this could improve her nasal symptoms. Malignant neoplasm of thyroid gland 03/23/2014 Overview (02/10/2017): MALIGN NEOPL THYROID Assessment & Plan (11/14/2023 7:10 PM FURNITURE LUMBER PRODUCTION WORKER): Diagnosed in 2006 s/p total thyroidectomy and ORELLANA x2 Will plan for biochemical surveillance with tumor markers and TSH. Goal TSH should be within normal range. Will order a neck SUG but if tumor markers are negative, further imaging is not warranted Non-toxic multinodular goiter 03/23/2014 Overview (02/10/2017): NONTOX MULTINODUL GOITER Benign neoplasm of adrenal gland 03/23/2014 Overview (02/10/2017): BENIGN NEOPLASM ADRENAL Papillary carcinoma of thyroid 03/19/2009 Assessment & Plan (11/14/2023 7:19 PM FURNITURE LUMBER PRODUCTION WORKER): Diagnosed in 2006 s/p total thyroidectomy and ORELLANA x2 Will plan for biochemical surveillance with tumor markers and TSH. Goal TSH should be within normal range. Ordered a neck USG since there is no imaging on file but if tumor markers are negative, less concern for recurrence. Current Treatment and Therapy Plans No current plan information found. Other Current Plans romosozumab (EVENITY) THERAPY PLAN* Plan Start Date:01/30/2021 Plan Provider:Lorenzo Robison MD Linked Problems Age-related osteoporosis wit hout current pathological fracture Treatment Medications No medications scheduled. Zoledronic Acid (Reclast) Infusion* Plan Start Date:05/31/2023 Plan Provider:Lorenzo Robison MD Linked Problems Age-related osteoporosis wit hout current pathological fracture Treatment Medications No medications scheduled. Past Treatment and Therapy Plans No past plan information found. Lifetime Dose Tracking * Chemical Lifetime Dose Automatic Entry Manual Entr y Fluoro Time 0.3 minutes 0.3 minutes 0 minutes Air kerma at the reference point (Ka,r) 3.86 mGy 3 .86 mGy 0 mGy
--- OUTSIDE RECORDS SUMMARY | 2025-03-25 10:59 | XMS_ITS | Encounter Summary ---
Author Organization [facility] Address [address] [place] [address] Phone Care Team Providers Care Psychiatry Resident Name Role Phone Luis Levi MD Primary Care Provider [phone] Encounter Details Date Type Department Care Team (Late st Contact Info) Description 03/10/2023 Orders Only [facility] Scanning, Provider Social History Tobacco Use Types Packs/Day Years Used Date Smoking Tobacco: Every Day Cigarettes 0.5 54.4 Started: 1972 Smokeless Tobacco: Never Alcohol Use Standard Drinks/Week Comments Yes 0 (1 standard drink = 0.6 oz pur e alcohol) AUDIT-C Answer Date Recorded Q1: How often do you have a drink containing alc ohol? 2-3 times a week 10/27/2021 Q2: How many drinks containi ng alcohol do you have on a typical day when you are drinking? 1 or 2 10/27/2021 Q3: How often do you have si x or more drinks on one occasion? Weekly 10/27/2021 Comments No Sex and Gender Information Value Date Recorded Sex Assigned at Not on file Legal Sex Female 7:54 PM BUSINESS DEVELOPMENT COORDINATOR Gender Identity Not on file Sexual Orientation Straight 09/10/2021 9: 59 AM CDT documented as of this encounter Plan of Treatment Not on file documented as of this encounter Procedures Procedure Name Priority Date/Time Associated Diagnosis Comments SCAN - LABS 03/10/2023 documented in this encounter Results * SCAN - LABS (03/10/2023) us Provider Scanning Final Result documented in this encounter Visit Diagnoses Not on filedocumented in this encounter Care Teams Psychiatry Resident Relationship Specialty Start Date End Date Luis Levi MD PCP - General 09/04/15 documented as of this encounter
--- OUTSIDE RECORDS SUMMARY | 2025-03-25 10:59 | XMS_ITS | Encounter Summary ---
Author Organization [facility] Address [address] [place] [address] Care Team Providers Care Private Wealth Advisor Name Role Phone Luis Levi MD Primary Care Provider [phone] Encounter Details Date Type Department Care Team (Late st Contact Info) Description 10/04/2023 Telephone [facility] [address] [address], [address] [place] [address] Gildardo Sosa MD [address] [address] Social History Tobacco Use Types Packs/Day Years Used Date Smoking Tobacco: Every Day Cigarettes 0.5 54.4 Started: 1972 Smokeless Tobacco: Never Comments:Smoking cessation g iven Alcohol Use Standard Drinks/Week Comments Yes 0 (1 standard drink = 0.6 oz pur e alcohol) AUDIT-C Answer Date Recorded Q1: How often do you have a drink containing alc ohol? 2-4 times a month 09/07/2023 Q2: How many drinks containi ng alcohol do you have on a typical day when you are drinking? 1 or 2 09/07/2023 Q3: How often do you have si x or more drinks on one occasion? Never 09/07/2023 Hunger Vital Sign Answer Date Recorded Within the past 12 months, y ou worried that your food would run out before you got the money to buy more. Never true 06/02/20 23 Within the past 12 months, t he food you bought just didn't last and you didn't have money to get more. Never true 06/02/2023 Personal Safety Answer Date Recorded Have you ever been in or are you currently in a harmful physical or emotional relationship or is someone making you feel afraid or unsafe? Denies 06/02/2023 Comments No Sex and Gender Information Value Date Recorded Sex Assigned at Not on file Legal Sex Female 7:54 PM ZYGLO TECHNICIAN Gender Identity Not on file Sexual Orientation Straight 09/10/2021 9: 59 AM CDT documented as of this encounter Plan of Treatment Not on file documented as of this encounter Goals Goal Patient Goal Type Associated Problems Recent Progress Patient-Stated? Author CCM Chronic Pain Care Plan Chronic Care Management Worsening( 12:23 PM CDT) No Stefanie Kaur RN Note: Problem: Chronic Pain Goals: 1. Minimize further functional decline 2. Maximize quality of life 3. Control pain Strategies: - Activity/exercise program recommendation - Conservative stepwise pain medicine strategy with multi-disciplinary approach - Recommend healthy lifestyle strategies and compensatory methods as needed documented as of this encounter Visit Diagnoses Not on filedocumented in this encounter Care Teams Private Wealth Advisor Relationship Specialty Start Date End Date Luis Levi MD PCP - General 09/04/15 documented as of this encounter
--- OUTSIDE RECORDS SUMMARY | 2025-03-25 10:59 | XMS_ITS | Encounter Summary ---
Author Organization [facility] Address [address] [place] [address] Phone Care Team Providers Care Tram Operator Name Role Phone Luis Levi MD Primary Care Provider [phone] Encounter Details Date Type Department Care Team (Late st Contact Info) Description 06/23/2021 Orders Only [facility] Scanning, Provider Social History Tobacco Use Types Packs/Day Years Used Date Smoking Tobacco: Every Day Cigarettes 0.5 54.4 Started: 1971 Smokeless Tobacco: Never Alcohol Use Standard Drinks/Week Comments Yes 0 (1 standard drink = 0.6 oz pur e alcohol) Comments No Sex and Gender Information Value Date Recorded Sex Assigned at Not on file Legal Sex Female 7:54 PM UTILITY HAND Gender Identity Not on file Sexual Orientation Straight 09/10/2021 9: 59 AM CDT documented as of this encounter Plan of Treatment Not on file documented as of this encounter Procedures Procedure Name Priority Date/Time Associated Diagnosis Comments SCAN - LABS 06/23/2021 documented in this encounter Results * SCAN - LABS (06/23/2021) us Provider Scanning Final Result documented in this encounter Visit Diagnoses Not on filedocumented in this encounter Care Teams Tram Operator Relationship Specialty Start Date End Date Luis Levi MD PCP - General 09/04/15 documented as of this encounter
--- OUTSIDE RECORDS SUMMARY | 2025-03-25 10:59 | XMS_ITS | Encounter Summary ---
Author Organization [facility] Address [address] [place] [address] Phone Care Team Providers Care Video Production Specialist Name Role Phone Luis Levi MD Primary Care Provider [phone] Encounter Details Date Type Department Care Team (Late st Contact Info) Description 03/17/2023 Orders Only [facility] Scanning, [...] on file Legal Sex Female 7:54 PM DIANETIC COUNSELOR Gender Identity Not on file Sexual Orientation Straight 09/10/2021 9: 59 AM CDT documented as of this encounter Plan of Treatment Not on file documented as of this encounter Procedures Procedure Name Priority Date/Time Associated Diagnosis Comments SCAN - RADIOLOGY/IMAGING 03/17/2023 documented in this encounter Results * SCAN - RADIOLOGY/IMAGING (03/17/2023) Anatomical Region Laterality Modality Other us Provider Scanning Final Result documented in this encounter Visit Diagnoses Not on filedocumented in this encounter Care Teams Video Production Specialist Relationship Specialty Start Date End Date Luis Levi MD PCP - General 09/04/15 documented as of this encounter
--- OUTSIDE RECORDS SUMMARY | 2025-03-25 10:59 | XMS_ITS | Referral Summary ---
Author Organization [facility] [address] Address [address] [place] [address] Care Team Providers Care Livestock Yard Attendant Name Role Phone Luis Levi MD Primary Care Provider [phone] Allergies Active Allergy Reactions Criticality Noted Date Comments Adhesive Tape-Silicones Rash Medium 12/22/2018 Celecoxib Hives Medium 05/14/2024 Other Hives Medium 03/13/2009 Viox Levothyroxine Unknown 07/11/2008 Pt can not take Synthroid. Able to take Levothyroxine, patient states she was not absorbing the medication in the Synthroid Medications spironolactone (ALDACTONE) 100 mg tablet take 1 tablet by oral route every day 0 0 5 Active Additional Information Patient taking differently: 150 mg, Reported on 11/09/2024 montelukast (SINGULAIR) 10 mg tablet Take one by mouth one time per day 0 0 7 Active estradiol (ESTRACE) 1 mg tablet Take 1 tablet (1 mg total) by mouth daily 7 Active ibuprofen (ADVIL,MOTRIN) 800 mg tablet every 6 (six) hours as needed. 9 Active fluticasone propionate (FLONASE) 50 mcg/actuation nasal sprayIndication s:Allergic rhinitis due to animal hair and dander Administer 1 spray into each nostril 2 (two) times a day 3 each 3 2 Active azelastine (ASTELIN) 137 mcg (0.1 %) nasal sprayIndication s:Allergic rhinitis due to animal hair and dander Administer 1 spray into each nostril 2 (two) times a day Use in each nostril as directed 90 mL 3 2 Active levothyroxine (SYNTHROID) 100 mcg tablet Take 1 tablet (100 mcg total) by mouth can dragger before breakfast 3 Active cholecalciferol (Vitamin D3) 5,000 unit tablet Active Active Problems Problem Noted Date Diagnosed Date Sesamoiditis of right hand 10/10/2024 Trigger finger, right index finger 10/10/2024 Trigger middle finger of right hand 09/24/2024 Post-surgical hypothyroidism 11/14/2023 Assessment & Plan (11/14/2023 7:04 PM DIESEL ENGINE ERECTOR): -repeat TSH, FT4 today -continue current dose of levothyroxine, will adjust dose based on her labs -goal TSH should be within normal range since she has been in remission for >10 years. Also with her hx of osteoporosis and vertebral fractures, would not recommend suppressed TSH History of vertebral compression fracture 2022 Recurrent maxillary sinusitis 10/28/2022 Assessment & Plan (10/28/2022 8:40 AM DIESEL ENGINE ERECTOR): CT Sinus - have face covering completely of face for imaging Centralized Scheduling: Nasal saline spray (Simply saline, Little Remedies, Turner, Geismar) 2 second sprays or 2 squeezes into each nostril while looking down over the sink, do not need to sniff in. 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 No surgical treatment indicated at this time. Assessment & Plan (12/25/2018 8:05 AM DIESEL ENGINE ERECTOR): Patient demonstrates signs and symptoms consistent with [...] Nasal saline spray (Simply saline, Little Remedies, Turner, Geismar) 2 second sprays or 2 squeezes into [...] testing Assessment & Plan (01/08/2019 12:42 PM DIESEL ENGINE ERECTOR): Patient will be placed on fluticasone nasal [...] benefit. Assessment & Plan (12/25/2018 8:13 AM DIESEL ENGINE ERECTOR): Patient reports that she has been tested [...] 12/25/2018 Assessment & Plan (12/25/2018 8:08 AM DIESEL ENGINE ERECTOR): Patient was advised that habitual tobacco use with smoking cigarettes directly contributes to her chronic sinonasal symptoms. By stopping smoking this could improve her nasal symptoms. Malignant neoplasm of thyroid gland 03/23/2014 Overview (02/10/2017): MALIGN NEOPL THYROID Assessment & Plan (11/14/2023 7:10 PM DIESEL ENGINE ERECTOR): Diagnosed in 2006 s/p total thyroidectomy and [...] 03/19/2009 Assessment & Plan (11/14/2023 7:19 PM DIESEL ENGINE ERECTOR): Diagnosed in 2006 s/p total thyroidectomy and ORELLANA x2 Will plan for biochemical surveillance with tumor markers and TSH. Goal TSH should be within normal range. Ordered a neck USG since there is no imaging on file but if tumor markers are negative, less concern for recurrence. Immunizations Immunization Administration Dates Next Due Influenza, Unspecified 08/07/2019 Pneumococcal Polysaccharide PPV23 03/28/2020 Tdap 02/20/2024,03/28/2020 ZOSTER LIVE 04/02/2016 Social History Tobacco Use Types Packs/Day Years Used Date Smoking Tobacco: Every Day Cigarettes 0.5 54.4 Started: 1970 Smokeless Tobacco: Never Tobacco Cessation:Ready to Q uit: Not Asked; Counseling Given: Not Answered Comments:Smoking cessation given Alcohol Use Standard Drinks/Week Comments Yes 0 (1 standard drink = 0.6 oz pur e alcohol) AUDIT-C Answer Date Recorded Q1: How often do you have a drink containing alc ohol? 2-4 times a month 10/01/2024 Q2: How many drinks containi ng alcohol do you have on a typical day when you are drinking? 1 or 2 10/01/2024 Frequency of Binge Drinking Not on file 09/08 Hunger Vital Sign Answer Date Recorded Within the past 12 months, y ou worried that your food would run out before you got the money to buy more. Never true 06/01/20 24 Within the past 12 months, t he food you bought just didn't last and you didn't have money to get more. Never true 06/01/2024 Personal Safety Answer Date Recorded Have you ever been in or are you currently in a harmful physical or emotional relationship or is someone making you feel afraid or unsafe? Denies 10/09/2024 Comments No Sex and Gender Information Value Date Recorded Sex Assigned at Not on file Legal Sex Female 7:54 PM DIESEL ENGINE ERECTOR Gender Identity Not on file Sexual Orientation Straight 09/10/2021 9: 59 AM CDT Last Filed Vital Signs Vital Sign Reading Time Taken Comments Blood Pressure 116/90 10/09/2024 1:55 PM DIESEL ENGINE ERECTOR Pulse 67 10/09/2024 1:55 PM DIESEL ENGINE ERECTOR Temperature 36.9 C (98.5 F) 10/09/2024 1:25 PM DIESEL ENGINE ERECTOR Respiratory Rate 20 10/09/2024 1:55 PM DIESEL ENGINE ERECTOR Oxygen Saturation 92% 10/09/2024 1:55 PM DIESEL ENGINE ERECTOR Inhaled Oxygen Concentration - - Weight 92.2 kg (203 lb 4.2 oz) 10/09/2024 10:16 AM DIESEL ENGINE ERECTOR Height 167.6 cm (5' 6 ) 10/09/2024 10:16 AM DIESEL ENGINE ERECTOR Body Mass Index 32.81 10/09/2024 10:16 AM DIESEL ENGINE ERECTOR Plan of Treatment Not on file Goals Goal Patient Goal Type Associated Problems [...] lifestyle strategies and compensatory methods as needed Procedures Procedure Name Priority Date/Time Associated Diagnosis Comments DEXA TBS AXIAL SKELETON BONE DENSITY 1 OR MORE SITES Schedule Routine, Read Routine (OP Routine) 04/18/2023 10:05 AM CDT Age-related osteoporosis without current pathological fracture COLONOSCOPY 10/27/2021 9:14 AM DIESEL ENGINE ERECTOR from Last 3 Months or Most Recently Relevant to Health Maintenance Results * Dexa TBS Axial Skeleton Bone Density 1 or more sites (04/18/2023 10:05 AM CDT) Anatomical Region Laterality Modality Wrist, Body N/A Radiographic Bela ging Narrative 04/18/2023 10:36 AM CDT Patient Name: Madeline Villa Date of : 1955 Date of scan: 04/18/2023 Bone mineral density was performed on a HoloAxialMED Discovery Densitometer. Based on machine cross-calibration and precision studies the least significant changes of this densitometer is 0.024 g/cm2 at the spine, 0.020 g/cm2 at the total proximal femur, and 0.014g/cm2 at the forearm. HISTORY: This is a 67 y.o. postmenopausal female with a history of low bone mass, multiple fractures, and thyroid disease. She reports that she has been smoking cigarettes. She started smoking about 52 years ago. She has been smoking an average of .5 packs per day. She has never used smokeless tobacco. Currently on treatment with vitamin D, hormone replacement therapy, and thyroid hormone, previously treated with romosozumab ([facility]), and current complaint of back pain and leg pain. INDICATIONS: Menopause status, history of prior vertebral fracture, and history of low bone mass. FINDINGS: BONE MINERAL DENSITY OF THE LUMBAR SPINE Bone Mineral Density (BMD) of the lumbar spine was measured from L1-L4 and the average density was calculated to be 1.222 gm/cm2. This corresponds to a T-score (standard deviations from the mean of young adults) of 1.6. When compared to the previous study of 01/07/21 there has been a 0.047 gm/cm (4.0%) increase in bone density that is considered significant. BONE MINERAL DENSITY OF THE PROXIMAL FEMUR Bone Mineral Density (BMD) of the left hip total was found to be 0.791 gm/cm2. This corresponds to a T-score standard deviations from the mean of young adults of -1.2. Femoral neck is 0.558 gm/cm2 with a T-score (standard deviations from the mean of young adults) of -2.6. When compared to the previous study of 02/15/22 there has been a 0.022 gm/cm (2.8%) increase in bone density that is considered significant. SUMMARY: Bone mineral density shows evidence of osteoporosis and marked increase risk of fracture. There has been a significant increase in bone density since previous measurement. The lumbar spine Trabecular Bone Score is 1.212 which suggests degraded bone microarchitecture compared to the general population. Final decisions regarding diagnostic or therapeutic recommendations should include BMD, TBS, additional clinical risk factors as well the clinical context of the patient. Please see attached TBS results for further details. ADDITIONAL COMMENTS: Postmenopausal Women and Men Over 50: Diagnostic criteria: Osteoporosis: BMD at or below -2.5 T-score; Osteopenia (low bone mass): BMD between -1.0 and -2.5 T-score. If the patient has a history of a fragility fracture, a fracture that occurred with trauma equivalent to a fall from a standing position or less, then the diagnosis is osteoporosis regardless of bone density. The history and data sections of the bone mineral density scan were prepared by Sally Elder who is accredited by the International Society of Clinical Densitometry. The overall patient assessment and scan interpretation were performed by Lorenzo Robison M.D. who is certified by the International Society of Clinical Densitometry. [id number] us Lorenzo Robison MD IM DXA PROCEDURES Final Re sult * COLONOSCOPY (10/27/2021 9:14 AM DIESEL ENGINE ERECTOR) Anatomical Region Laterality Modality Other Narrative Procedure Note Adrianna Quinn MD - 10/27/2021 9:14 AM CST [facility] Patient Name: Madeline Villa Procedure Date: 10/27/2021 9:14 AM Date of : 1955 Admit Type: Outpatient Age: 66 Gender: Female Attending MD: Adrianna Quinn M.D. Room: [facility] ENDOSCOPY ROOM 1 Note Status: Finalized Patient Profile: This is a 66 year old female. No family history of colon cancer. Noted positive Cologuard test. Procedure: Colonoscopy Indications: Screening for colorectal malignant neoplasm, Last colonoscopy: date unknown Referring MD: Luis Levi M.D. Providers: Adrianna Quinn M.D. Impression: - Diverticulosis in the entire examined colon. - Two 5 to 16 mm polyps in the descending colon, removed with a cold snare. Resected andretrieved. - Two 4 to 5 mm polyps in the distal sigmoid colon, removed with a cold snare. Resected andretrieved. - Internal hemorrhoids. Recommendation: - Await pathology results. - Repeat colonoscopy in 3 years for screeningpurposes. - Continue present medications. Medicines: Monitored Anesthesia Care Complications: No immediate complications. Estimated Blood Loss: Estimated blood loss: none. Procedure: Pre-Anesthesia Assessment: - Prior to the procedure, a History and Physicalwas performed, and patient medications and allergieswere reviewed. The patient's tolerance of previous anesthesia was also reviewed. The risks andbenefits of the procedure and the sedation options and risks were discussed with the patient. All questions were answered, and informed consent was obtained. Prior Anticoagulants: The patient has taken no previous anticoagulant or antiplatelet agents. ASA Grade Assessment: III - A patient with severe systemic disease. After reviewing the risks and benefits,the patient was deemed in satisfactory condition to undergo the procedure. The benefits, risks and alternatives of theprocedure and sedation were discussed and informed consentwas obtained. All questions were answered. Please referto the signed informed consent document in the medical record. The scope was passed under direct vision.The Pediatric Colonoscope PCF-H190L [id number] was introduced through the anus and advanced to the the cecum, identified by appendiceal orifice andileocecal valve. The bowel preparation used was Miralax via split dose instruction. The bowel preparation usedwas bisacodyl tablets via split dose instruction. The quality of the bowel preparation was good. Bowelprep was administered using a split dose. Findings: The perianal and digital rectal examinations were normal. The cecum appeared normal. Multiple small and large-mouthed diverticula were found in the entire colon. Two sessile polyps were found in the descending colon. The polypswere 5 to 16 mm in size. These polyps were removed with a cold snare.Resection and retrieval were complete. Two sessile polyps were found in the distal sigmoid colon. The polyps were 4 to 5 mm in size. These polyps were removed with a cold snare. Resection and retrieval were complete. Internal hemorrhoids were found during retroflexion. The hemorrhoids were medium-sized. Electronically signed by Adrianna Quinn M.D. Adrianna Quinn M.D. 10/27/2021 9:56:45 AM Number of Addenda: 0 Note Initiated On: 10/27/2021 9:14 AM Procedure Code(s): --- Professional --- 00769, Colonoscopy, flexible; with removal of tumor(s), polyp(s), or other lesion(s) by snare technique Diagnosis Code(s): --- Professional --- Z12.11, Encounter for screening for malignant neoplasm of colon K63.5, Polyp of colon K57.30, Diverticulosis of large intestine without perforation orabscess without bleeding K64.8, Other hemorrhoids CPT copyright 2019 [employer]. All rights reserved. The codes documented in this report are preliminary and upon guest request runner reviewmay be revised to meet current compliance requirements. Recognized by the [employer] for promoting quality in endoscopy Adrianna Quinn MD ENDOSCOPY PROCEDURES Final Result from Last 3 Months or Most Recently Relevant to Health Maintenance Insurance [place] MEDICARE [place] [employer] Advance Directives For more information, please contact: [phone] * Full Code (Latest Code Status on File) Date Activated Date Inactivated Comments 10/27/2021 8:24 AM 10/27/2021 2:47 PM * Full Code Date Activated Date Inactivated Comments 10/27/2021 8:24 AM 10/27/2021 8:24 AM Care Teams Livestock Yard Attendant Relationship Specialty Start Date End Date Luis Levi MD PCP - General 09/04/15
--- OUTSIDE RECORDS SUMMARY | 2025-03-25 10:59 | XMS_ITS | Clinical Summary ---
Author Organization [facility] [address] Address [address] [place] [address] Care Team Providers Care Game Manager Name Role Phone Luis Levi MD Primary Care Provider [phone] Allergies Active Allergy Reactions Criticality Noted Date [...] 1 tablet (100 mcg total) by mouth cutter grind tool technician before breakfast 3 Active cholecalciferol (Vitamin D3) 5,000 unit tablet Active Active Problems Problem Noted Date Diagnosed Date Sesamoiditis of right hand 10/10/2024 Trigger finger, right index finger 10/10/2024 Trigger middle finger of right hand 09/24/2024 Post-surgical hypothyroidism 11/14/2023 Assessment & Plan (11/14/2023 7:04 PM GARBAGE TRUCK DRIVER): -repeat TSH, FT4 today -continue current dose of levothyroxine, will adjust dose based on her labs -goal TSH should be within normal range since she has been in remission for >10 years. Also with her hx of osteoporosis and vertebral fractures, would not recommend suppressed TSH History of vertebral compression fracture 2022 Recurrent maxillary sinusitis 10/28/2022 Assessment & Plan (10/28/2022 8:40 AM GARBAGE TRUCK DRIVER): CT Sinus - have face covering completely of face for imaging Centralized Scheduling: Nasal saline spray (Simply saline, Little Remedies, Peridot, [place]) 2 second sprays or 2 squeezes into each nostril while looking down over the sink, do not need to sniff in. 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 No surgical treatment indicated at this time. Assessment & Plan (12/25/2018 8:05 AM GARBAGE TRUCK DRIVER): Patient demonstrates signs and symptoms consistent with [...] Nasal saline spray (Simply saline, Little Remedies, Peridot, [place]) 2 second sprays or 2 squeezes into [...] testing Assessment & Plan (01/08/2019 12:42 PM GARBAGE TRUCK DRIVER): Patient will be placed on fluticasone nasal [...] benefit. Assessment & Plan (12/25/2018 8:13 AM GARBAGE TRUCK DRIVER): Patient reports that she has been tested [...] 12/25/2018 Assessment & Plan (12/25/2018 8:08 AM GARBAGE TRUCK DRIVER): Patient was advised that habitual tobacco use with smoking cigarettes directly contributes to her chronic sinonasal symptoms. By stopping smoking this could improve her nasal symptoms. Malignant neoplasm of thyroid gland 03/23/2014 Overview (02/10/2017): MALIGN NEOPL THYROID Assessment & Plan (11/14/2023 7:10 PM GARBAGE TRUCK DRIVER): Diagnosed in 2006 s/p total thyroidectomy and [...] 03/19/2009 Assessment & Plan (11/14/2023 7:19 PM GARBAGE TRUCK DRIVER): Diagnosed in 2006 s/p total thyroidectomy and [...] PPV23 03/28/2020 Tdap 02/20/2024,03/28/2020 ZOSTER LIVE 04/02/2016 Surgical History Surgery Date Site/Laterality Comments THYROIDECTOMY Thyroidectomy TOTAL ABDOMINAL HYSTERECTOMY Hysterectomy, total CARPAL TUNNEL RELEASE 09/22/2017 Right JOINT REPLACEMENT 09/22/2017 Right hand cmc asrthroplasty COLONOSCOPY many years ago OVARY SURGERY 11/07/1979 - 11/06/1980 Right Medical History Medical History Date Comments Disorder of thyroid Thyroid dise ase Hypertension Hypertension Osteoporosis Osteoporosis Hx Other Medical gastric reflux; Comments: APO 07/23/2015 - Hx Other Medical osteoarthritis; Comments: APO 07/23/2015 - Malignant neoplasm of thyroid gland (HCC) Cancer, thyroid Diverticulitis of colon Hypothyroidism Heart burn Constipation Arthritis Hip pain, chronic, right Family History Medical History Relation Name Comments Heart disease Father Hyperlipidemia Father Hypertension Father Heart disease Mother Colon cancer Other 1 Family history of Cancer -colon; Heart disease Other 2 Family history of heart problems; Hypertension Sister Stroke Sister Broken bones Neg Hx Hip fracture Neg Hx Kyphosis Neg Hx Osteoporosis Neg Hx Scoliosis Neg Hx Relation Name Status Comments Father Mother Other 1 Other 2 Sister Social History Tobacco Use Types Packs/Day Years [...] on file Legal Sex Female 7:54 PM GARBAGE TRUCK DRIVER Gender Identity Not on file Sexual Orientation Straight 09/10/2021 9: 59 AM CDT Obstetrics History Last Filed Vital Signs Vital Sign Reading Time Taken Comments Blood Pressure 116/90 10/09/2024 1:55 PM GARBAGE TRUCK DRIVER Pulse 67 10/09/2024 1:55 PM GARBAGE TRUCK DRIVER Temperature 36.9 C (98.5 F) 10/09/2024 1:25 PM GARBAGE TRUCK DRIVER Respiratory Rate 20 10/09/2024 1:55 PM GARBAGE TRUCK DRIVER Oxygen Saturation 92% 10/09/2024 1:55 PM GARBAGE TRUCK DRIVER Inhaled Oxygen Concentration - - Weight 92.2 kg (203 lb 4.2 oz) 10/09/2024 10:16 AM GARBAGE TRUCK DRIVER Height 167.6 cm (5' 6 ) 10/09/2024 10:16 AM GARBAGE TRUCK DRIVER Body Mass Index 32.81 10/09/2024 10:16 AM GARBAGE TRUCK DRIVER Plan of Treatment Health Maintenance Due Date Last Done Comments Breast Cancer Screening-Mammogram 1955 Depression Screening 1955 Hepatitis C Screening 1955 Hepatitis B Screening 1972 Lung Cancer Screening 2004 Zoster Vaccine (2 of 3) 05/28/2016 04/02/2016 Well Visit 65+ 2019 Pneumococcal vaccine 65+ (2 of 2 - PCV) 03/28/2021 03/28/2020 Fall Risk Assessment 10/27/2022 10/27/2021 Osteoporosis Screening-Bone Density Scan 04/18/2025 04/18/2023, 02/15/2022, 01/07/2021 Influenza Vaccine (Season Ended) 2025 08/07/20 19 Colon Cancer Screening-Colonoscopy 10/27/20312020 DTaP/Tdap/Td Vaccine (3 - Td or Tdap) 02/19/2034 02/20/2024, 03/28/2020 Colon Cancer Screening-CT Colonography Discontinued 10/27/2021 Colon Cancer Screening-DNA Stool Discontinued 10/27/20 Colon Cancer Screening-FIT Discontinued 10/27/2021 Colon Cancer Screening-Sigmoidoscopy Discontinued 10/08 Goals Goal Patient Goal Type Associated Problems Recent Progress Patient-Stated? Author CCM Chronic Pain Care Plan Chronic Care Management Worsening( 12:23 PM CDT) Stefanie Alva, RN Note: Problem: Chronic Pain Goals: 1. [...] current pathological fracture COLONOSCOPY 10/27/2021 9:14 AM GARBAGE TRUCK DRIVER from Last 3 Months or Most Recently Relevant to Health Maintenance Results * Dexa TBS Axial Skeleton Bone Density 1 or more sites (04/18/2023 10:05 AM CDT) Anatomical Region Laterality Modality Wrist, Body N/A Radiographic Bela ging Narrative 04/18/2023 10:36 AM CDT Patient Name: Madeline Villa Date of : 1955 Date of scan: 04/18/2023 Bone mineral density was performed on a HoloCortona3D Discovery Densitometer. Based on machine cross-calibration and [...] and thyroid hormone, previously treated with romosozumab ([facility]), and current complaint of back pain [...] by the International Society of Clinical Densitometry. [id number] us Lorenzo Robison MD IM DXA PROCEDURES Final Re sult * COLONOSCOPY (10/27/2021 9:14 AM GARBAGE TRUCK DRIVER) Anatomical Region Laterality Modality Other Narrative Procedure Note Adrianna Quinn MD - 10/27/2021 9:14 AM CST [facility] Patient Name: Madeline Villa Procedure Date: 10/27/2021 9:14 AM Date of : 1955 Admit Type: Outpatient Age: 66 Gender: Female Attending MD: Adrianna Quinn M.D. Room: [facility] 1 Note Status: Finalized [...] passed under direct vision.The Pediatric Colonoscope PCF-H190L [id number] was introduced through the anus and advanced [...] 9:14 AM Procedure Code(s): --- Professional --- 66030, Colonoscopy, flexible; with removal of tumor(s), polyp(s), or other lesion(s) by snare technique Diagnosis Code(s): --- Professional --- Z12.11, Encounter for screening for malignant neoplasm of colon K63.5, Polyp of colon K57.30, Diverticulosis of large intestine without perforation orabscess without bleeding K64.8, Other hemorrhoids CPT copyright 2019 [place] [employer]. All rights reserved. The codes documented in this report are preliminary and upon data coder operator reviewmay be revised to meet current compliance requirements. Recognized by the [place] [employer] for promoting quality in endoscopy Adrianna Quinn MD ENDOSCOPY PROCEDURES Final Result from Last 3 Months or Most Recently Relevant to Health Maintenance Insurance [employer] MEDICARE MEDICARE [employer] MEDICARE Advance Directives For more information, please contact: [phone] * Full Code (Latest Code Status on File) Date Activated Date Inactivated Comments 10/27/2021 8:24 AM 10/27/2021 2:47 PM * Full Code Date Activated Date Inactivated Comments 10/27/2021 8:24 AM 10/27/2021 8:24 AM Care Teams Game Manager Relationship Specialty Start Date End Date Luis Levi MD PCP - General 09/04/15
[2025-03-25 11:26] LABS: Alanine Aminotransferase 25 U/L (14-59); Albumin Level 3.8 g/dL (3.4-5.0); Alkaline Phosphatase 62 U/L (46-116); Anion Gap 9 mmol/L (4-12); Aspartate Amino Transferase 19 U/L (15-37); Blood Urea Nitrogen 15 mg/dL (7-18); Calcium 9.4 mg/dL (8.5-10.1); Carbon Dioxide 30 mmol/L (21-32); Chloride 101 mmol/L (98-108); Cholesterol 211 mg/dL (0-200); Estimated Glomerular Filt Rate 52; Free T4 Free Thyroxine 1.41 ng/dL (0.76-1.46); Glucose 95 mg/dL (70-99); HDL Direct 65 mg/dL (40-60); LDL Cholesterol Calculated 133 mg/dL (<130); Osmolality Calculated 290 mOsm/kg (285-295); Sodium 140 mmol/L (136-145); Thyroid Stimulating Hormone 0.24 uIU/mL (0.36-3.74); Total Protein 7.1 g/dL (6.4-8.2); Triglycerides 63 mg/dL (0-150)
[2025-03-25 11:27] LABS: Free T3 2.06 pg/mL (2.18-3.98)
== END 2025-03-25 10:22 | disposition home or self-care (01) ==
PROVIDERS: PCP Internal Medicine; Visit Provider Internal Medicine
DX: I10 Essential (primary) hypertension (principal); E03.9 Hypothyroidism, unspecified
CPT/HCPCS: 36415; 80053; 80061; 81003; 84439; 84443; 84481; 85027

== ENCOUNTER 2025-04-02 07:52 | Outpatient (CLI) | payer MEDICARE, SELFPAY ==
--- NOTE | ~2025-04-02 | MM_ITS ---
EXAMINATION: MM screening camille BI w martínez HISTORY: Screening TECHNIQUE: Craniocaudal and mediolateral oblique 3-D tomosynthesis images were obtained and synthetic 2-D images were generated. CAD analysis was submitted and interpreted. COMPARISON: Comparison to multiple prior studies sequentially, with oldest reviewed study dated 12/28. BREAST PARENCHYMAL COMPOSITION: Dense: The breasts are heterogeneously dense, which may obscure small masses FINDINGS: The right breast is stable without evidence for malignancy. There is a new spiculated mass in the upper central aspect of the left breast, middle third. This ma ss measures approximately 2.1 cm. IMPRESSION: 1. New spiculated 2.1 cm mass upper central left breast, middle third. 2. Additional mammographic views and possible breast ultrasound are recommended. BI-RADS Category 0: Incomplete: Needs additional imaging evaluation. Reviewed, dictated and finalized at location A. IMPRESSION: 1. New spiculated 2.1 cm mass upper central left breast, middle third. 2. Additional mammographic views and possible breast ultrasound are recommended . BI-RADS Category 0: Incomplete: Needs additional imaging evaluation.
--- OUTSIDE RECORDS SUMMARY | 2025-04-02 07:55 | XMS_ITS | Encounter Summary ---
Author Organization [facility] Healthcare Address [address] [place] [address] Care Team Providers Care Data Analyst Name Role Phone Luis Levi MD Primary Care Provider [phone] Encounter Details Date Type Department Care Team (Late st Contact Info) Description 10/04/2023 Telephone [facility] [address] [address], [address] [place] [address] Gildardo Sosa MD [address] [address] Social History Tobacco Use Types [...] on file Legal Sex Female 7:54 PM CHIEF TECHNOLOGIST Gender Identity Not on file Sexual Orientation Straight 09/10/2021 9: 59 AM CDT documented as of this encounter Plan of Treatment Not on file documented as of this encounter Goals Goal Patient Goal Type Associated Problems Recent Progress Patient-Stated? Author CCM Chronic Pain Care Plan Chronic Care Management Worsening( 12:23 PM CDT) No Stefanei Kaur RN Note: Problem: Chronic Pain Goals: 1. Minimize further functional decline 2. Maximize quality of life 3. Control pain Strategies: - Activity/exercise program recommendation - Conservative stepwise pain medicine strategy with multi-disciplinary approach - Recommend healthy lifestyle strategies and compensatory methods as needed documented as of this encounter Visit Diagnoses Not on filedocumented in this encounter Care Teams Data Analyst Relationship Specialty Start Date End Date Luis Levi MD PCP - General 09/04/15 documented as of this encounter
--- OUTSIDE RECORDS SUMMARY | 2025-04-02 07:55 | XMS_ITS | Referral Summary ---
Author Organization [facility] [address] Address [address] [place] [address] Care Team Providers Care Field Ring Assembler Name Role Phone Luis Levi MD Primary Care Provider [phone] Allergies Active Allergy Reactions Criticality Noted Date [...] 1 tablet (100 mcg total) by mouth mail list processor before breakfast 3 Active cholecalciferol (Vitamin D3) 5,000 unit tablet Active Active Problems Problem Noted Date Diagnosed Date Sesamoiditis of right hand 10/10/2024 Trigger finger, right index finger 10/10/2024 Trigger middle finger of right hand 09/24/2024 Post-surgical hypothyroidism 11/14/2023 Assessment & Plan (11/14/2023 7:04 PM REC THERAPIST): -repeat TSH, FT4 today -continue current dose of levothyroxine, will adjust dose based on her labs -goal TSH should be within normal range since she has been in remission for >10 years. Also with her hx of osteoporosis and vertebral fractures, would not recommend suppressed TSH History of vertebral compression fracture 2022 Recurrent maxillary sinusitis 10/28/2022 Assessment & Plan (10/28/2022 8:40 AM REC THERAPIST): CT Sinus - have face covering completely of face for imaging Centralized Scheduling: Nasal saline spray (Simply saline, Little Remedies, [place], [place]) 2 second sprays or 2 squeezes into each nostril while looking down over the sink, do not need to sniff in. 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 No surgical treatment indicated at this time. Assessment & Plan (12/25/2018 8:05 AM REC THERAPIST): Patient demonstrates signs and symptoms consistent with [...] Nasal saline spray (Simply saline, Little Remedies, [place], [place]) 2 second sprays or 2 squeezes into [...] testing Assessment & Plan (01/08/2019 12:42 PM REC THERAPIST): Patient will be placed on fluticasone nasal [...] benefit. Assessment & Plan (12/25/2018 8:13 AM REC THERAPIST): Patient reports that she has been tested [...] 12/25/2018 Assessment & Plan (12/25/2018 8:08 AM REC THERAPIST): Patient was advised that habitual tobacco use with smoking cigarettes directly contributes to her chronic sinonasal symptoms. By stopping smoking this could improve her nasal symptoms. Malignant neoplasm of thyroid gland 03/23/2014 Overview (02/10/2017): MALIGN NEOPL THYROID Assessment & Plan (11/14/2023 7:10 PM REC THERAPIST): Diagnosed in 2006 s/p total thyroidectomy and [...] 03/19/2009 Assessment & Plan (11/14/2023 7:19 PM REC THERAPIST): Diagnosed in 2006 s/p total thyroidectomy and [...] on file Legal Sex Female 7:54 PM REC THERAPIST Gender Identity Not on file Sexual Orientation Straight 09/10/2021 9: 59 AM CDT Last Filed Vital Signs Vital Sign Reading Time Taken Comments Blood Pressure 116/90 10/09/2024 1:55 PM REC THERAPIST Pulse 67 10/09/2024 1:55 PM REC THERAPIST Temperature 36.9 C (98.5 F) 10/09/2024 1:25 PM REC THERAPIST Respiratory Rate 20 10/09/2024 1:55 PM REC THERAPIST Oxygen Saturation 92% 10/09/2024 1:55 PM REC THERAPIST Inhaled Oxygen Concentration - - Weight 92.2 kg (203 lb 4.2 oz) 10/09/2024 10:16 AM REC THERAPIST Height 167.6 cm (5' 6) 10/09/2024 10:16 AM REC THERAPIST Body Mass Index 32.81 10/09/2024 10:16 AM REC THERAPIST Plan of Treatment Not on file Goals [...] current pathological fracture COLONOSCOPY 10/27/2021 9:14 AM REC THERAPIST from Last 3 Months or Most Recently Relevant to Health Maintenance Results * Dexa TBS Axial Skeleton Bone Density 1 or more sites (04/18/2023 10:05 AM CDT) Anatomical Region Laterality Modality Wrist, Body N/A Radiographic Bela ging Narrative 04/18/2023 10:36 AM CDT Patient Name: Madeline Villa Date of : 1955 Date of scan: 04/18/2023 Bone mineral density was performed on a HoloGigaLogix Discovery Densitometer. Based on machine cross-calibration and [...] and thyroid hormone, previously treated with romosozumab ([facility]), and current complaint of back [...] by the International Society of Clinical Densitometry. [id number] us Lorenzo Robison MD IM DXA PROCEDURES Final Re sult * COLONOSCOPY (10/27/2021 9:14 AM REC THERAPIST) Anatomical Region Laterality Modality Other Narrative Procedure Note Adrianna Quinn MD - 10/27/2021 9:14 AM CST [facility] Patient Name: Madeline Villa Procedure Date: 10/27/2021 9:14 AM Date of : 1955 Admit Type: Outpatient Age: 66 Gender: Female Attending MD: Adrianna Quinn M.D. [facility] Note Status: Finalized [...] passed under direct vision.The Pediatric Colonoscope PCF-H190L [id number] was introduced through the anus and advanced [...] 9:14 AM Procedure Code(s): --- Professional --- 01461, Colonoscopy, flexible; with removal of tumor(s), polyp(s), or other lesion(s) by snare technique Diagnosis Code(s): --- Professional --- Z12.11, Encounter for screening for malignant neoplasm of colon K63.5, Polyp of colon K57.30, Diverticulosis of large intestine without perforation orabscess without bleeding K64.8, Other hemorrhoids CPT copyright 2019 [place] [employer]. All rights reserved. The codes documented in this report are preliminary and upon generating plant superintendent reviewmay be revised to meet current compliance requirements. Recognized by the [place] [employer] for promoting quality in endoscopy Adrianna Quinn MD ENDOSCOPY PROCEDURES Final Result from Last 3 Months or Most Recently Relevant to Health Maintenance Insurance [employer] MEDICARE MEDICARE [employer] MEDICARE Advance Directives For more information, please contact: [phone] * Full Code (Latest Code Status on File) Date Activated Date Inactivated Comments 10/27/2021 8:24 AM 10/27/2021 2:47 PM * Full Code Date Activated Date Inactivated Comments 10/27/2021 8:24 AM 10/27/2021 8:24 AM Care Teams Field Ring Assembler Relationship Specialty Start Date End Date Luis Levi MD PCP - General 09/04/15
--- OUTSIDE RECORDS SUMMARY | 2025-04-02 07:55 | XMS_ITS | Clinical Summary ---
Author Organization [facility] [address] Address [address] [place] [address] Care Team Providers Care Coffee Host Name Role Phone Luis Levi MD Primary Care Provider [phone] Allergies Active Allergy Reactions Criticality Noted Date [...] 1 tablet (100 mcg total) by mouth program coordinator executive education before breakfast 3 Active cholecalciferol (Vitamin D3) 5,000 unit tablet Active Active Problems Problem Noted Date Diagnosed Date Sesamoiditis of right hand 10/10/2024 Trigger finger, right index finger 10/10/2024 Trigger middle finger of right hand 09/24/2024 Post-surgical hypothyroidism 11/14/2023 Assessment & Plan (11/14/2023 7:04 PM AIR TRAFFIC CONTROL EQUIPMENT REPAIRER): -repeat TSH, FT4 today -continue current dose of levothyroxine, will adjust dose based on her labs -goal TSH should be within normal range since she has been in remission for >10 years. Also with her hx of osteoporosis and vertebral fractures, would not recommend suppressed TSH History of vertebral compression fracture 2022 Recurrent maxillary sinusitis 10/28/2022 Assessment & Plan (10/28/2022 8:40 AM AIR TRAFFIC CONTROL EQUIPMENT REPAIRER): CT Sinus - have face covering completely of face for imaging Centralized Scheduling: Nasal saline spray (Simply saline, Little Remedies, [place], [place]) 2 second sprays or 2 squeezes into each nostril while looking down over the sink, do not need to sniff in. 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 No surgical treatment indicated at this time. Assessment & Plan (12/25/2018 8:05 AM AIR TRAFFIC CONTROL EQUIPMENT REPAIRER): Patient demonstrates signs and symptoms consistent with [...] Nasal saline spray (Simply saline, Little Remedies, [place], [place]) 2 second sprays or 2 squeezes into [...] testing Assessment & Plan (01/08/2019 12:42 PM AIR TRAFFIC CONTROL EQUIPMENT REPAIRER): Patient will be placed on fluticasone nasal [...] benefit. Assessment & Plan (12/25/2018 8:13 AM AIR TRAFFIC CONTROL EQUIPMENT REPAIRER): Patient reports that she has been tested [...] 12/25/2018 Assessment & Plan (12/25/2018 8:08 AM AIR TRAFFIC CONTROL EQUIPMENT REPAIRER): Patient was advised that habitual tobacco use with smoking cigarettes directly contributes to her chronic sinonasal symptoms. By stopping smoking this could improve her nasal symptoms. Malignant neoplasm of thyroid gland 03/23/2014 Overview (02/10/2017): MALIGN NEOPL THYROID Assessment & Plan (11/14/2023 7:10 PM AIR TRAFFIC CONTROL EQUIPMENT REPAIRER): Diagnosed in 2006 s/p total thyroidectomy and [...] 03/19/2009 Assessment & Plan (11/14/2023 7:19 PM AIR TRAFFIC CONTROL EQUIPMENT REPAIRER): Diagnosed in 2006 s/p total thyroidectomy and [...] on file Legal Sex Female 7:54 PM AIR TRAFFIC CONTROL EQUIPMENT REPAIRER Gender Identity Not on file Sexual Orientation Straight 09/10/2021 9: 59 AM CDT Obstetrics History Last Filed Vital Signs Vital Sign Reading Time Taken Comments Blood Pressure 116/90 10/09/2024 1:55 PM AIR TRAFFIC CONTROL EQUIPMENT REPAIRER Pulse 67 10/09/2024 1:55 PM AIR TRAFFIC CONTROL EQUIPMENT REPAIRER Temperature 36.9 C (98.5 F) 10/09/2024 1:25 PM AIR TRAFFIC CONTROL EQUIPMENT REPAIRER Respiratory Rate 20 10/09/2024 1:55 PM AIR TRAFFIC CONTROL EQUIPMENT REPAIRER Oxygen Saturation 92% 10/09/2024 1:55 PM AIR TRAFFIC CONTROL EQUIPMENT REPAIRER Inhaled Oxygen Concentration - - Weight 92.2 kg (203 lb 4.2 oz) 10/09/2024 10:16 AM AIR TRAFFIC CONTROL EQUIPMENT REPAIRER Height 167.6 cm (5' 6) 10/09/2024 10:16 AM AIR TRAFFIC CONTROL EQUIPMENT REPAIRER Body Mass Index 32.81 10/09/2024 10:16 AM AIR TRAFFIC CONTROL EQUIPMENT REPAIRER Plan of Treatment Health Maintenance Due Date [...] current pathological fracture COLONOSCOPY 10/27/2021 9:14 AM AIR TRAFFIC CONTROL EQUIPMENT REPAIRER from Last 3 Months or Most Recently Relevant to Health Maintenance Results * Dexa TBS Axial Skeleton Bone Density 1 or more sites (04/18/2023 10:05 AM CDT) Anatomical Region Laterality Modality Wrist, Body N/A Radiographic Bela ging Narrative 04/18/2023 10:36 AM CDT Patient Name: Madeline Villa Date of : 1955 Date of scan: 04/18/2023 Bone mineral density was performed on a HoloBoardVantage Discovery Densitometer. Based on machine cross-calibration and [...] and thyroid hormone, previously treated with romosozumab ([facility]), and current complaint of back pain and [...] by the International Society of Clinical Densitometry. [id number] us Lorenzo Robison MD IM DXA PROCEDURES Final Re sult * COLONOSCOPY (10/27/2021 9:14 AM AIR TRAFFIC CONTROL EQUIPMENT REPAIRER) Anatomical Region Laterality Modality Other Narrative Procedure Note Adrianna Quinn MD - 10/27/2021 9:14 AM CST [facility] Patient Name: Madeline Villa Procedure Date: 10/27/2021 9:14 AM Date of : 1955 Admit Type: Outpatient Age: 66 Gender: Female Attending MD: Adrianna Quinn M.D. Room: [facility] 1 Note Status: Finalized Patient [...] passed under direct vision.The Pediatric Colonoscope PCF-H190L [id number] was introduced through the anus and advanced [...] 9:14 AM Procedure Code(s): --- Professional --- 51844, Colonoscopy, flexible; with removal of tumor(s), polyp(s), or other lesion(s) by snare technique Diagnosis Code(s): --- Professional --- Z12.11, Encounter for screening for malignant neoplasm of colon K63.5, Polyp of colon K57.30, Diverticulosis of large intestine without perforation orabscess without bleeding K64.8, Other hemorrhoids CPT copyright 2019 [employer]. All rights reserved. The codes documented in this report are preliminary and upon salt manager reviewmay be revised to meet current compliance requirements. Recognized by the [employer] for promoting quality in endoscopy Adrianna Quinn MD ENDOSCOPY PROCEDURES Final Result from Last 3 Months or Most Recently Relevant to Health Maintenance [place] [address] MEDICARE [place] [address] MEDICARE Advance Directives For more information, please contact: [phone] * Full Code (Latest Code Status on File) Date Activated Date Inactivated Comments 10/27/2021 8:24 AM 10/27/2021 2:47 PM * Full Code Date Activated Date Inactivated Comments 10/27/2021 8:24 AM 10/27/2021 8:24 AM Care Teams Coffee Host Relationship Specialty Start Date End Date Luis Levi MD PCP - General 09/04/15
--- OUTSIDE RECORDS SUMMARY | 2025-04-02 07:56 | XMS_ITS ---
Author Organization [facility] [address] [facility] Address [address] [place] [address] Care Team Providers Care Residential Plumber Name Role Phone Luis Levi MD Primary Care Provider [phone] Active Problems Problem Noted Date Diagnosed Date Sesamoiditis of right hand 10/10/2024 Trigger finger, right index finger 10/10/2024 Trigger middle finger of right hand 09/24/2024 Post-surgical hypothyroidism 11/14/2023 Assessment & Plan (11/14/2023 7:04 PM TRUCK DRIVER SALESPERSON): -repeat TSH, FT4 today -continue current dose of levothyroxine, will adjust dose based on her labs -goal TSH should be within normal range since she has been in remission for >10 years. Also with her hx of osteoporosis and vertebral fractures, would not recommend suppressed TSH History of vertebral compression fracture 2022 Recurrent maxillary sinusitis 10/28/2022 Assessment & Plan (10/28/2022 8:40 AM TRUCK DRIVER SALESPERSON): CT Sinus - have face covering completely of face for imaging Centralized Scheduling: Nasal saline spray (Simply saline, Little Remedies, [place], [place]) 2 second sprays or 2 squeezes into each nostril while looking down over the sink, do not need to sniff in. 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 No surgical treatment indicated at this time. Assessment & Plan (12/25/2018 8:05 AM TRUCK DRIVER SALESPERSON): Patient demonstrates signs and symptoms consistent with [...] Nasal saline spray (Simply saline, Little Remedies, [place], [place]) 2 second sprays or 2 squeezes into [...] testing Assessment & Plan (01/08/2019 12:42 PM TRUCK DRIVER SALESPERSON): Patient will be placed on fluticasone nasal [...] benefit. Assessment & Plan (12/25/2018 8:13 AM TRUCK DRIVER SALESPERSON): Patient reports that she has been tested [...] 12/25/2018 Assessment & Plan (12/25/2018 8:08 AM TRUCK DRIVER SALESPERSON): Patient was advised that habitual tobacco use with smoking cigarettes directly contributes to her chronic sinonasal symptoms. By stopping smoking this could improve her nasal symptoms. Malignant neoplasm of thyroid gland 03/23/2014 Overview (02/10/2017): MALIGN NEOPL THYROID Assessment & Plan (11/14/2023 7:10 PM TRUCK DRIVER SALESPERSON): Diagnosed in 2006 s/p total thyroidectomy and [...] 03/19/2009 Assessment & Plan (11/14/2023 7:19 PM TRUCK DRIVER SALESPERSON): Diagnosed in 2006 s/p total thyroidectomy and [...]
--- OUTSIDE RECORDS SUMMARY | 2025-04-02 07:56 | XMS_ITS | Encounter Summary ---
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
--- OUTSIDE RECORDS SUMMARY | 2025-04-02 07:56 | XMS_ITS | Encounter Summary ---
Author Organization [facility] Address [address] [place] [address] Phone Care Team Providers Care Therapeutic Program Worker Name Role Phone Luis Levi MD Primary Care Provider [phone] Encounter Details Date Type Department Care Team [...] on file Legal Sex Female 7:54 PM CONSULTING ANALYST Gender Identity Not on file Sexual Orientation [...] on filedocumented in this encounter Care Teams Therapeutic Program Worker Relationship Specialty Start Date End Date Luis Levi MD PCP - General 09/04/15 documented as of this encounter
--- OUTSIDE RECORDS SUMMARY | 2025-04-02 07:56 | XMS_ITS | Encounter Summary ---
Author Organization 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
== END 2025-04-02 07:53 | disposition home or self-care (01) ==
LOC: CHSIMG 07:53
PROVIDERS: PCP Internal Medicine; Visit Provider Internal Medicine
DX: Z12.31 Encounter for screening mammogram for malignant neoplasm of breast (principal); R92.8 Other abnormal and inconclusive findings on diagnostic imaging of breast
CPT/HCPCS: 77063; 77067

== ENCOUNTER 2025-04-16 09:46 | Outpatient (CLI) | payer MEDICARE, SELFPAY ==
--- NOTE | ~2025-04-16 | MMUS_ITS ---
EXAMINATION: MM diagnostic camille LT w martínez, US breast LT complete HISTORY: Left breast mass seen on previous mammogram. TECHNIQUE: Additional 3-D tomosynthesis images of the left breast were performed and synthetic 2-D im ages were generated. CAD analysis was submitted and interpreted. High resolution complete left breast ultrasound was performed. COMPARISON: Comparison to multiple prior studies sequentially, with oldest reviewed study dated 07/03.. BREAST PARENCHYMAL COMPOSITION: Dense: The breasts are heterogeneously dense, which may obscure small masses FINDINGS: MAMMOGRAPHIC FINDINGS: There is a spiculated mass in the upper central aspect of the left breast, middle third. There are no suspicious calcifications. ULTRASOUND: Complete US of all 4 quadrants of the breast/s and retroareolar region was reviewed. At 6:00, 5 cm fr om the nipple which is oval circumscribed parallel oriented hypoechoic mass measuring 4 mm. No consultants intern al vascularity. At 11:00, 4 cm from the nipple there is an oval hypoechoic 7 mm mass with parallel or ientation, low-level internal echoes and no internal vascularity, likely benign. At 12:00, 3 cm from the nipple there is an irregular shaped mass measuring 2.1 x 1.7 x 1.5 cm with internal vascularity a nd mixed posterior attenuation. This mass corresponds to the mammographic finding. IMPRESSION: 1. Complex vascular spiculated left breast mass at 12:00, 3 cm from the nipple. 2. Ultrasound-guided left breast biopsy recommended. BI-RADS category 5, highly suggestive of malignancy. Reviewed, dictated and finalized at location B. IMPRESSION: 1. Complex vascular spiculated left breast mass at 12:00, 3 cm from the nipple. 2. Ultrasound-guided left breast biopsy recommended. BI-RADS category 5, highly suggestive of malignancy.
--- OUTSIDE RECORDS SUMMARY | 2025-04-16 10:31 | XMS_ITS | Encounter Summary ---
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 Gender Identity Not on file Sexual Orientation Straight 09/10/2021 9: 59 AM CDT documented as of this encounter Plan of Treatment Upcoming Encounters Date Type Department Care Team (Late Contact Info) Description 10/15/2025 11:30 AM GRAIN FARMWORKER Hospital Encounter [facility] [address] [place] [address] Adrianna Quinn MD [address] [facility] [address] [place] [address] 10/15/2025 11:30 AM GRAIN FARMWORKER - 10/15/2025 12:00 PM GRAIN FARMWORKER Surgery [facility] [address] [place] [address] Adrianna Quinn MD [address] [facility] [address] [place] [address] COLONOSCOPY Scheduled Procedures Name Priority Associated Diagnoses Date/Ti me COLONOSCOPY History of colonic polyps 10/15/2025 11:30 AM GRAIN FARMWORKER documented as of this encounter Procedures Procedure Name Priority Date/Time Associated Diagnosis Comments SCAN - RADIOLOGY/IMAGING 03/17/2023 documented in this encounter Results * SCAN - RADIOLOGY/IMAGING (03/17/2023) Anatomical Region Laterality Modality Other us Provider Scanning Final Result documented in this encounter Visit Diagnoses Not on filedocumented in this encounter Care Teams Appeals Analyst Relationship Specialty Start Date End Date Luis Levi MD PCP - General 09/04/15 documented as of this encounter
--- OUTSIDE RECORDS SUMMARY | 2025-04-16 10:31 | XMS_ITS | Encounter Summary ---
Author Organization [facility] Address [address] [place] [address] Care Team Providers Care School Health Aide Name Role Phone Luis Levi MD Primary Care Provider [phone] Encounter Details Date Type Department Care Team (Late st Contact Info) Description 10/04/2023 Telephone [facility] [place] [facility] [address] [address], [address] [place] [address] Gildardo Sosa MD [address] [address] Social History Tobacco Use Types Packs/Day Years Used Date Smoking Tobacco: Every Day Cigarettes 0.5 54.4 Started: 1971 Smokeless Tobacco: Never Comments:Smoking cessation g iven [...] on file Legal Sex 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 Gender Identity Not on file Sexual Orientation Straight 09/10/2021 9: 59 AM CDT documented as of this encounter Plan of Treatment Upcoming Encounters Date Type Department Care Team (Late st Contact Info) Description 10/15/2025 11:30 AM NAIL POLISH BRUSH MACHINE FEEDER Hospital Encounter [address] [address] Adrianna Quinn MD [address] [facility] [address] [place] [address] 10/15/2025 11:30 AM NAIL POLISH BRUSH MACHINE FEEDER - 10/15/2025 12:00 PM NAIL POLISH BRUSH MACHINE FEEDER Surgery [address] [address] Adrianna Quinn MD [address] [place] [address] [address] [place] [address] COLONOSCOPY Scheduled Procedures Name Priority Associated Diagnoses Date/Ti me COLONOSCOPY History of colonic polyps 10/15/2025 11:30 AM NAIL POLISH BRUSH MACHINE FEEDER documented as of this encounter Goals Goal [...] on filedocumented in this encounter Care Teams School Health Aide Relationship Specialty Start Date End Date Luis Levi MD PCP - General 09/04/15 documented as of this encounter
--- OUTSIDE RECORDS SUMMARY | 2025-04-16 10:31 | XMS_ITS | Encounter Summary ---
Author Organization [facility] Address [address] [place] [address] Phone Care Team Providers Care Poke In Name Role Phone Luis Levi MD Primary Care Provider [phone] Encounter Details Date Type Department Care Team (Late Contact Info) Description 03/10/2023 Orders Only [facility] Scanning, Provider [...] on file Legal Sex Female 7:54 PM STAFFING PROGRAM MANAGER Gender Identity Not on file Sexual Orientation Straight 09/10/2021 9: 59 AM CDT documented as of this encounter Plan of Treatment Upcoming Encounters Date Type Department Care Team (Late Contact Info) Description 10/15/2025 11:30 AM STAFFING PROGRAM MANAGER Hospital Encounter [facility] [address] [place] [address] Adrianna Quinn MD [address] [facility] [address] [place] [address] 10/15/2025 11:30 AM STAFFING PROGRAM MANAGER - 10/15/2025 12:00 PM STAFFING PROGRAM MANAGER Surgery [facility] 1 [place] [address] Adrianna Quinn MD [address] [facility] [address] [place] [address] COLONOSCOPY Scheduled Procedures Name Priority Associated Diagnoses Date/Ti me COLONOSCOPY History of colonic polyps 10/15/2025 11:30 AM STAFFING PROGRAM MANAGER documented as of this encounter Procedures Procedure Name Priority Date/Time Associated Diagnosis Comments SCAN - LABS 03/10/2023 documented in this encounter Results * SCAN - LABS (03/10/2023) us Provider Scanning Final Result documented in this encounter Visit Diagnoses Not on filedocumented in this encounter Care Teams Poke In Relationship Specialty Start Date End Date Luis Levi MD PCP - General 09/04/15 documented as of this encounter
--- OUTSIDE RECORDS SUMMARY | 2025-04-16 10:31 | XMS_ITS ---
Author Organization [facility] Address [address] [place] [address] Care Team Providers Care Geography Instructor Name Role Phone Luis Levi MD Primary Care Provider [phone] Active Problems Problem Noted Date Diagnosed Date History of colonic polyps 04/05/2025 Sesamoiditis of right hand 10/10/2024 Trigger finger, right index finger 10/10/2024 Trigger middle finger of right hand 09/24/2024 Post-surgical hypothyroidism 11/14/2023 Assessment & Plan (11/14/2023 7:04 PM CREATIVE ARTS THERAPIST): -repeat TSH, FT4 today -continue current dose of levothyroxine, will adjust dose based on her labs -goal TSH should be within normal range since she has been in remission for >10 years. Also with her hx of osteoporosis and vertebral fractures, would not recommend suppressed TSH History of vertebral compression fracture 2022 Recurrent maxillary sinusitis 10/28/2022 Assessment & Plan (10/28/2022 8:40 AM CREATIVE ARTS THERAPIST): CT Sinus - have face covering completely of face for imaging Centralized Scheduling: Nasal saline spray (Simply saline, Little Remedies, [place], [place]) 2 second sprays or 2 squeezes into each nostril while looking down over the sink, do not need to sniff in. 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 No surgical treatment indicated at this time. Assessment & Plan (12/25/2018 8:05 AM CREATIVE ARTS THERAPIST): Patient demonstrates signs and symptoms consistent [...] Nasal saline spray (Simply saline, Little Remedies, [place], [place]) 2 second sprays or 2 squeezes into [...] testing Assessment & Plan (01/08/2019 12:42 PM CREATIVE ARTS THERAPIST): Patient will be placed on fluticasone [...] benefit. Assessment & Plan (12/25/2018 8:13 AM CREATIVE ARTS THERAPIST): Patient reports that she has been [...] 12/25/2018 Assessment & Plan (12/25/2018 8:08 AM CREATIVE ARTS THERAPIST): Patient was advised that habitual tobacco use with smoking cigarettes directly contributes to her chronic sinonasal symptoms. By stopping smoking this could improve her nasal symptoms. Malignant neoplasm of thyroid gland 03/23/2014 Overview (02/10/2017): MALIGN NEOPL THYROID Assessment & Plan (11/14/2023 7:10 PM CREATIVE ARTS THERAPIST): Diagnosed in 2006 s/p total thyroidectomy [...] 03/19/2009 Assessment & Plan (11/14/2023 7:19 PM CREATIVE ARTS THERAPIST): Diagnosed in 2006 s/p total thyroidectomy [...]
--- OUTSIDE RECORDS SUMMARY | 2025-04-16 10:31 | XMS_ITS | Referral Summary ---
Author Organization [address] [facility] [place] Address [address] [place] [address] Care Team Providers Care Digital Account Manager Name Role Phone Luis Levi MD Primary Care Provider [phone] Encounters Date Type Department Care Team Description 04/05/2025 Telephone [facility] Gastroenterology at [address] [place] [address] Mirna Welsh from Last 3 Months Allergies Active Allergy Reactions Criticality Noted Date [...] 1 tablet (100 mcg total) by mouth business systems administrator before breakfast 3 Active cholecalciferol (Vitamin D3) 5,000 unit tablet Active Active Problems Problem Noted Date Diagnosed Date History of colonic polyps 04/05/2025 Sesamoiditis of right hand 10/10/2024 Trigger finger, right index finger 10/10/2024 Trigger middle finger of right hand 09/24/2024 Post-surgical hypothyroidism 11/14/2023 Assessment & Plan (11/14/2023 7:04 PM TERRITORY DEVELOPMENT MANAGER): -repeat TSH, FT4 today -continue current dose of levothyroxine, will adjust dose based on her labs -goal TSH should be within normal range since she has been in remission for >10 years. Also with her hx of osteoporosis and vertebral fractures, would not recommend suppressed TSH History of vertebral compression fracture 2022 Recurrent maxillary sinusitis 10/28/2022 Assessment & Plan (10/28/2022 8:40 AM TERRITORY DEVELOPMENT MANAGER): CT Sinus - have face covering completely of face for imaging Centralized Scheduling: Nasal saline spray (Simply saline, Little Remedies, [place], [place]) 2 second sprays or 2 squeezes into each nostril while looking down over the sink, do not need to sniff in. 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 No surgical treatment indicated at this time. Assessment & Plan (12/25/2018 8:05 AM TERRITORY DEVELOPMENT MANAGER): Patient demonstrates signs and symptoms consistent with [...] Nasal saline spray (Simply saline, Little Remedies, [place], [place]) 2 second sprays or 2 squeezes into [...] testing Assessment & Plan (01/08/2019 12:42 PM TERRITORY DEVELOPMENT MANAGER): Patient will be placed on fluticasone nasal [...] benefit. Assessment & Plan (12/25/2018 8:13 AM TERRITORY DEVELOPMENT MANAGER): Patient reports that she has been tested [...] 12/25/2018 Assessment & Plan (12/25/2018 8:08 AM TERRITORY DEVELOPMENT MANAGER): Patient was advised that habitual tobacco use with smoking cigarettes directly contributes to her chronic sinonasal symptoms. By stopping smoking this could improve her nasal symptoms. Malignant neoplasm of thyroid gland 03/23/2014 Overview (02/10/2017): MALIGN NEOPL THYROID Assessment & Plan (11/14/2023 7:10 PM TERRITORY DEVELOPMENT MANAGER): Diagnosed in 2006 s/p total thyroidectomy and [...] 03/19/2009 Assessment & Plan (11/14/2023 7:19 PM TERRITORY DEVELOPMENT MANAGER): Diagnosed in 2006 s/p total thyroidectomy and [...] on file Legal Sex Female 7:54 PM TERRITORY DEVELOPMENT MANAGER Gender Identity Not on file Sexual Orientation Straight 09/10/2021 9: 59 AM CDT Last Filed Vital Signs Vital Sign Reading Time Taken Comments Blood Pressure 116/90 10/09/2024 1:55 PM TERRITORY DEVELOPMENT MANAGER Pulse 67 10/09/2024 1:55 PM TERRITORY DEVELOPMENT MANAGER Temperature 36.9 C (98.5 F) 10/09/2024 1:25 PM TERRITORY DEVELOPMENT MANAGER Respiratory Rate 20 10/09/2024 1:55 PM TERRITORY DEVELOPMENT MANAGER Oxygen Saturation 92% 10/09/2024 1:55 PM TERRITORY DEVELOPMENT MANAGER Inhaled Oxygen Concentration - - Weight 92.2 kg (203 lb 4.2 oz) 10/09/2024 10:16 AM TERRITORY DEVELOPMENT MANAGER Height 167.6 cm (5' 6) 10/09/2024 10:16 AM TERRITORY DEVELOPMENT MANAGER Body Mass Index 32.81 10/09/2024 10:16 AM TERRITORY DEVELOPMENT MANAGER Plan of Treatment Upcoming Encounters Date Type Department Care Team (Late st Contact Info) Description 10/15/2025 11:30 AM TERRITORY DEVELOPMENT MANAGER Hospital Encounter [facility] [address] [place] [address] Adrianna Quinn MD [address] [facility] [address] [place] [address] 10/15/2025 11:30 AM TERRITORY DEVELOPMENT MANAGER - 10/15/2025 12:00 PM TERRITORY DEVELOPMENT MANAGER Surgery [address] [address] Adrianna Quinn MD [address] [facility] [address] [place] [address] COLONOSCOPY Scheduled Procedures Name Priority Associated Diagnoses Date/Ti me COLONOSCOPY History of colonic polyps 10/15/2025 11:30 AM TERRITORY DEVELOPMENT MANAGER Goals Goal Patient Goal Type Associated Problems Recent Progress Patient-Stated? Author CCM Chronic Pain Care Plan Chronic Care Management Worsening( 12:23 PM CDT) Stefanie Alva RN Note: Problem: Chronic Pain Goals: 1. [...] current pathological fracture COLONOSCOPY 10/27/2021 9:14 AM TERRITORY DEVELOPMENT MANAGER from Last 3 Months or Most Recently Relevant to Health Maintenance Results * Dexa TBS Axial Skeleton Bone Density 1 or more sites (04/18/2023 10:05 AM CDT) Anatomical Region Laterality Modality Wrist, Body N/A Radiographic Bela ging Narrative 04/18/2023 10:36 AM CDT Patient Name: Madeline Villa Date of : 1955 Date of scan: 04/18/2023 Bone mineral density was performed on a [place] Discovery Densitometer. Based on machine cross-calibration and [...] and thyroid hormone, previously treated with romosozumab ([facility]), and current complaint of back [...] by the International Society of Clinical Densitometry. [id number] us Lorenzo Robison MD IMG DXA PROCEDURES Final Re sult * COLONOSCOPY (10/27/2021 9:14 AM TERRITORY DEVELOPMENT MANAGER) Anatomical Region Laterality Modality Other Narrative Procedure Note Adrianna Quinn MD - 10/27/2021 9:14 AM CST [facility] Patient Name: Madeline Villa Procedure Date: 10/27/2021 9:14 AM Date of : 1955 Admit Type: Outpatient Age: 66 Gender: Female Attending MD: Adrianna Quinn M.D. Room: [facility] ENDOSCOPY ROOM 1 Note Status: Finalized Patient [...] passed under direct vision.The Pediatric Colonoscope PCF-H190L [id number] was introduced through the anus and advanced [...] 9:14 AM Procedure Code(s): --- Professional --- 53480, Colonoscopy, flexible; with removal of tumor(s), polyp(s), or other lesion(s) by snare technique Diagnosis Code(s): --- Professional --- Z12.11, Encounter for screening for malignant neoplasm of colon K63.5, Polyp of colon K57.30, Diverticulosis of large intestine without perforation orabscess without bleeding K64.8, Other hemorrhoids CPT copyright 2019 [employer]. All rights reserved. The codes documented in this report are preliminary and upon pre coder reviewmay be revised to meet current compliance requirements. Recognized by the [employer] for promoting quality in endoscopy Adrianna Quinn MD ENDOSCOPY PROCEDURES Final Result from Last 3 Months or Most Recently Relevant to Health Maintenance Insurance [employer] MEDICARE [employer] INSURANCE [employer] MEDICARE Advance Directives For more information, please contact: [phone] * Full Code (Latest Code Status on File) Date Activated Date Inactivated Comments 10/27/2021 8:24 AM 10/27/2021 2:47 PM * Full Code Date Activated Date Inactivated Comments 10/27/2021 8:24 AM 10/27/2021 8:24 AM Care Teams Digital Account Manager Relationship Specialty Start Date End Date Luis Levi MD PCP - General 09/04/15
--- OUTSIDE RECORDS SUMMARY | 2025-04-16 10:31 | XMS_ITS | Clinical Summary ---
Author Organization [facility] Address [address] [place] [address] Care Team Providers Care Naturopathic Doctor Name Role Phone Luis Levi MD Primary Care Provider [phone] Allergies Active Allergy Reactions Criticality Noted Date [...] 1 tablet (100 mcg total) by mouth early childhood worker before breakfast 3 Active cholecalciferol (Vitamin D3) 5,000 unit tablet Active Active Problems Problem Noted Date Diagnosed Date History of colonic polyps 04/05/2025 Sesamoiditis of right hand 10/10/2024 Trigger finger, right index finger 10/10/2024 Trigger middle finger of right hand 09/24/2024 Post-surgical hypothyroidism 11/14/2023 Assessment & Plan (11/14/2023 7:04 PM EPIC INTERFACE ANALYST): -repeat TSH, FT4 today -continue current dose of levothyroxine, will adjust dose based on her labs -goal TSH should be within normal range since she has been in remission for >10 years. Also with her hx of osteoporosis and vertebral fractures, would not recommend suppressed TSH History of vertebral compression fracture 2022 Recurrent maxillary sinusitis 10/28/2022 Assessment & Plan (10/28/2022 8:40 AM EPIC INTERFACE ANALYST): CT Sinus - have face covering completely of face for imaging Centralized Scheduling: Nasal saline spray (Simply saline, Little Remedies, [place], [place]) 2 second sprays or 2 squeezes into each nostril while looking down over the sink, do not need to sniff in. 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 No surgical treatment indicated at this time. Assessment & Plan (12/25/2018 8:05 AM EPIC INTERFACE ANALYST): Patient demonstrates signs and symptoms consistent with [...] Nasal saline spray (Simply saline, Little Remedies, [place], [place]) 2 second sprays or 2 squeezes into [...] testing Assessment & Plan (01/08/2019 12:42 PM EPIC INTERFACE ANALYST): Patient will be placed on fluticasone nasal [...] benefit. Assessment & Plan (12/25/2018 8:13 AM EPIC INTERFACE ANALYST): Patient reports that she has been tested [...] 12/25/2018 Assessment & Plan (12/25/2018 8:08 AM EPIC INTERFACE ANALYST): Patient was advised that habitual tobacco use with smoking cigarettes directly contributes to her chronic sinonasal symptoms. By stopping smoking this could improve her nasal symptoms. Malignant neoplasm of thyroid gland 03/23/2014 Overview (02/10/2017): MALIGN NEOPL THYROID Assessment & Plan (11/14/2023 7:10 PM EPIC INTERFACE ANALYST): Diagnosed in 2006 s/p total thyroidectomy and [...] 03/19/2009 Assessment & Plan (11/14/2023 7:19 PM EPIC INTERFACE ANALYST): Diagnosed in 2006 s/p total thyroidectomy and ORELLANA x2 Will plan for biochemical surveillance with tumor markers and TSH. Goal TSH should be within normal range. Ordered a neck USG since there is no imaging on file but if tumor markers are negative, less concern for recurrence. Encounters Date Type Department Care Team Description 04/05/2025 Telephone [facility] Gastroenterology at [address] [place] [address] Mirna Welsh from Last 3 Months Immunizations Immunization Administration Dates Next Due Influenza, [...] on file Legal Sex Female 7:54 PM EPIC INTERFACE ANALYST Gender Identity Not on file Sexual Orientation Straight 09/10/2021 9: 59 AM CDT Obstetrics History Last Filed Vital Signs Vital Sign Reading Time Taken Comments Blood Pressure 116/90 10/09/2024 1:55 PM EPIC INTERFACE ANALYST Pulse 67 10/09/2024 1:55 PM EPIC INTERFACE ANALYST Temperature 36.9 C (98.5 F) 10/09/2024 1:25 PM EPIC INTERFACE ANALYST Respiratory Rate 20 10/09/2024 1:55 PM EPIC INTERFACE ANALYST Oxygen Saturation 92% 10/09/2024 1:55 PM EPIC INTERFACE ANALYST Inhaled Oxygen Concentration - - Weight 92.2 kg (203 lb 4.2 oz) 10/09/2024 10:16 AM EPIC INTERFACE ANALYST Height 167.6 cm (5' 6) 10/09/2024 10:16 AM EPIC INTERFACE ANALYST Body Mass Index 32.81 10/09/2024 10:16 AM EPIC INTERFACE ANALYST Plan of Treatment Upcoming Encounters Date Type Department Care Team (Late st Contact Info) Description 10/15/2025 11:30 AM EPIC INTERFACE ANALYST Hospital Encounter [address] [address] Adrianna Quinn MD [address] [place] [address] [address] [place] [address] 10/15/2025 11:30 AM EPIC INTERFACE ANALYST - 10/15/2025 12:00 PM EPIC INTERFACE ANALYST Surgery [address] [address] Adrianna Quinn MD [address] [facility] [address] [place] [address] COLONOSCOPY Scheduled Procedures Name Priority Associated Diagnoses Date/Ti me COLONOSCOPY History of colonic polyps 10/15/2025 11:30 AM EPIC INTERFACE ANALYST Health Maintenance Due Date Last Done Comments [...] 01/07/2021 Influenza Vaccine (Season Ended) 2025 08/07/20 Colon Cancer Screening-Colonoscopy 10/27/20312020 DTaP/Tdap/Td Vaccine (3 - Td or Tdap) 02/19/2034 02/20/2024, 03/28/2020 Colon Cancer Screening-CT Colonography Discontinued 10/27/2021 Colon Cancer Screening-DNA Stool Discontinued 10/27/20 Colon Cancer Screening-FIT Discontinued 10/27/2021 Colon Cancer Screening-Sigmoidoscopy Discontinued 10/08 Goals Goal Patient Goal Type Associated Problems Recent Progress Patient-Stated? Author CCM Chronic Pain Care Plan Chronic Care Management Worsening( 12:23 PM CDT) Stefanie Alva, FABIAN Note: Problem: Chronic Pain Goals: 1. Minimize [...] current pathological fracture COLONOSCOPY 10/27/2021 9:14 AM EPIC INTERFACE ANALYST from Last 3 Months or Most Recently Relevant to Health Maintenance Results * Dexa TBS Axial Skeleton Bone Density 1 or more sites (04/18/2023 10:05 AM CDT) Anatomical Region Laterality Modality Wrist, Body N/A Radiographic Bela ging Narrative 04/18/2023 10:36 AM CDT Patient Name: Madeline Villa Date of : 1955 Date of scan: 04/18/2023 Bone mineral density was performed on a [employer] Discovery Densitometer. Based on machine cross-calibration and [...] and thyroid hormone, previously treated with romosozumab ([facility]), and current complaint of back [...] by the International Society of Clinical Densitometry. [id number] us Lorezno Robison MD IMG DXA PROCEDURES Final Re sult * COLONOSCOPY (10/27/2021 9:14 AM EPIC INTERFACE ANALYST) Anatomical Region Laterality Modality Other Narrative Procedure Note Adrianna Quinn MD - 10/27/2021 9:14 AM CST [facility] Patient Name: Madeline Villa Procedure Date: 10/27/2021 9:14 AM Date of : 1955 Admit Type: Outpatient Age: 66 Gender: Female Attending MD: Adrianna Quinn M.D. Room: [facility] ENDOSCOPY ROOM 1 Note Status: [...] passed under direct vision.The Pediatric Colonoscope PCF-H190L [id number] was introduced through the anus and advanced [...] 9:14 AM Procedure Code(s): --- Professional --- 19917, Colonoscopy, flexible; with removal of tumor(s), polyp(s), or other lesion(s) by snare technique Diagnosis Code(s): --- Professional --- Z12.11, Encounter for screening for malignant neoplasm of colon K63.5, Polyp of colon K57.30, Diverticulosis of large intestine without perforation orabscess without bleeding K64.8, Other hemorrhoids CPT copyright 2019 [place] [employer]. All rights reserved. The codes documented in this report are preliminary and upon gate watchman reviewmay be revised to meet current compliance requirements. Recognized by the [place] [employer] Gastrointestinal Endoscopy for promoting quality in endoscopy Adrianna Quinn MD ENDOSCOPY PROCEDURES Final Result from Last 3 Months or Most Recently Relevant to Health Maintenance Insurance [employer] MED[employer]ARE [employer] MEDICARE Advance Directives For more information, please contact: [phone] * Full Code (Latest Code Status on File) Date Activated Date Inactivated Comments 10/27/2021 8:24 AM 10/27/2021 2:47 PM * Full Code Date Activated Date Inactivated Comments 10/27/2021 8:24 AM 10/27/2021 8:24 AM Care Teams Naturopathic Doctor Relationship Specialty Start Date End Date Luis Levi MD PCP - General 09/04/15
--- OUTSIDE RECORDS SUMMARY | 2025-04-16 10:31 | XMS_ITS | Encounter Summary ---
Author Organization [facility] [facility] Address [address] [place] [address] Phone Care Team Providers Care Chest Painting Leader Name Role Phone Luis Levi MD Primary Care Provider [phone] Encounter Details Date Type Department Care Team (Late st Contact Info) Description 06/23/2021 Orders Only [facility] Scanning, Provider [...] on file Legal Sex Female 7:54 PM DIGITAL BUSINESS ANALYST Gender Identity Not on file Sexual Orientation Straight 09/10/2021 9: 59 AM CDT documented as of this encounter Plan of Treatment Upcoming Encounters Date Type Department Care Team (Late st Contact Info) Description 10/15/2025 11:30 AM DIGITAL BUSINESS ANALYST Hospital Encounter [facility] [address] [place] [address] Adrianna Quinn MD [address] [place] [address] [address] [place] [address] 10/15/2025 11:30 AM DIGITAL BUSINESS ANALYST - 10/15/2025 12:00 PM DIGITAL BUSINESS ANALYST Surgery [facility] [address] [place] [address] Adrianna Quinn MD [address] [place] [id number] COLONOSCOPY Scheduled Procedures Name Priority Associated Diagnoses Date/Ti me COLONOSCOPY History of colonic polyps 10/15/2025 11:30 AM DIGITAL BUSINESS ANALYST documented as of this encounter Procedures Procedure Name Priority Date/Time Associated Diagnosis Comments SCAN - LABS 06/23/2021 documented in this encounter Results * SCAN - LABS (06/23/2021) us Provider Scanning Final Result documented in this encounter Visit Diagnoses Not on filedocumented in this encounter Care Teams Chest Painting Leader Relationship Specialty Start Date End Date Luis Levi MD PCP - General 09/04/15 documented as of this encounter
== END 2025-04-16 09:47 | disposition home or self-care (01) ==
LOC: CHSIMG 09:48
PROVIDERS: PCP Internal Medicine; Visit Provider Internal Medicine
DX: R92.8 Other abnormal and inconclusive findings on diagnostic imaging of breast (principal)
CPT/HCPCS: 76641; 77061; 77065; G0279